=== PATIENT | female | born 1950 | race Caucasian/White ===

== ENCOUNTER 2017-11-21 10:25 | Outpatient (RCR) | payer MEDICARE, OTHER, SELFPAY ==
[2017-11-21 11:04] VITALS: BP 144/68; PULSE 88; RESP 18; TEMP 36.6; BMI 66.2
--- NOTE | 2017-11-21 12:17 | PN.PCM_ITS ---
(1) Ulcer of right foot with fat layer exposed Status: Chronic Current Visit: Yes Code(s): L97.512 - Non-pressure chronic ulcer of other part of right foot with fat layer exposed (2) Type 2 diabetes mellitus with diabetic polyneuropathy Status: Chronic Current Visit: Yes Code(s): E11.42 - Type 2 diabetes mellitus with diabetic polyneuropathy (3) Other specified peripheral vascular diseases Status: Chronic Current Visit: Yes Code(s): I73.89 - Other specified peripheral vascular diseases (4) Malnutrition Status: Suspected Current Visit: Yes Code(s): E46 - Unspecified protein- calorie malnutrition Type of Wound Date of Service: 11/21/17 Chief Complaint: Right heel wound History of Wound: This 67-year-old female with multiple comorbidities was seen today in the wound healing center for right heel ulcer with an onset of September 26, 2017 after she had repair of a acute right hip fracture. Her wound was a result of her lying in bed. She has been having dressing changes performed and wears an offloading foam boot. She denies routine claudication. She does have some occasional paresthesias. She denies taking nutritional supplements. Primary care physician: Dr. Tai Love in [facility]. Medications: Atorvastatin, losartan, 81 mg aspirin, latanoprost, Plavix, metformin, insulin aspart, and glucosamine/chondroitin, cetirizine, ginkgo biloba, vitamin B12, multivitamin Centrum for women, Santyl. She is: Cortisone , latex, strawberry. Past medical history: Cataracts, glaucoma, chronic sinusitis, history of ear surgery, hypertension, peripheral vascular disease, history of vasculitis, diabetes. Family history: Diabetes, cancer, heart disease, hypertension, lung disease, seizures, stroke. Hospitalization/ surgical history: Gallstone removal, right knee orthopedic, hysterectomy, cataract removal, nose passage surgery, right hip fracture repair, left fifth toe amputation, right central toe amputation. Review of systems: Denies ever, chill, nausea, shortness of breath, chest pain, calf pain, abdominal pain. Reports right heel ulcer, occasional paresthesias, reviews claudication. denies infection. Progress of Wound: Stable - Physical Exam Vital Signs Temp Pulse Resp BP 97.8 F 88 18 144/68 H 11/21/17 11:04 11/21/17 11:04 11/21/17 11:04 11/21/17 11:04 General: Alert, Oriented x3, Cooperative HEENT: Atraumatic Extremities: No cyanosis, Capillary Refill Less than 3 Seconds, No Calf Tenderness - Negative Day and Rojo sign bilateral, Diminished Peripheral Pulses - 1 out of 4 dorsalis pedis right and nonpalpable PT right, Edema - Mild Skin: Ulcer/ Wound - No purulence, no erythema, no streaking, no infection, no odor. The wound base has adipose tissue exposed and granulation tissue. There is no eschar or shannon necrosis. There is no deep exposed tissue. Wound Measurements and Assessment WC - Nurse 1 - General Ulcer Measurement Start: 11/21/17 11:04 Freq: Status: Active Protocol: Activity Type Activity Date Activity User E-Sign Co-Sign Detail Recorded Client Recorded Date Recorded By Document 11/21/17 11:04 DL [id number] 11/21/17 11:24 DL 11/21/17 11:04 Wound Center Nurse 1 [Ulcer Assessment Protocol: HEIDI.WD.LOC] #1 R Heel -Current Size (cm) - Length 1.6 -Current Size (cm) - Width 1.6 -Current Size (cm) - Depth 0.2 -Total Square Cm 2.56 -Photo Taken Yes -Epithelialization Small 1-33% -Exudate Amt Small (1-33%) -Exudate Type Serosanguineous -Wound Margin Distinct, Outline Attached -Granulation Amt Medium (34-66%) -Granulation Quality [place] -Necrosis Amt Medium (34-66%) -Necrotic Tissue Type Adherent Slough -Structure Exposed N/A -Texture (Rebeca-wound Skin Appearance) No Abnormality -Moisture (Rebeca-wound Skin Appearance No Abnormality ) -Color (Rebeca-wound Skin Appearance) No Abnormality -Temperature (Rebeca-wound Skin No Abnormality Appearance) (Pt Warm) -Ulcer Cleansing Wound Cleanser -Foul Odor after Cleansing No -Anesthetic Used 4% Lidocaine Solution [Edema Assessment] -Right Calf (cm) 33.2 -Right Ankle (cm) 19.7 -Left Calf (cm) 34.6 -Left Ankle (cm) 19.5 WC - Nurse 2 - General Ulcer CM Notes Start: 11/21/17 11:04 Freq: Status: Active Protocol: Activity Type Activity Date Activity User E-Sign Co-Sign Detail Recorded Client Recorded Date Recorded By Document 11/21/17 11:47 JF [id number] 11/21/17 11:54 11/21/17 11:47 Wound Center Nurse 2 [Procedure/Treatment] #1 R Heel -Time 11:48 -Correct Patient Yes -Correct Side, Site, Position Yes -Correct Procedure Yes -Procedure Performed Yes -Type of Procedure Debridement -Clinical Debridement Subcutaneous -Post Debridement Size (cm) - Length 1.7 -Post Debridement Size (cm) - Width 1.7 -Post Debridement Size (cm) - Depth 0.2 -Total Square Cm 2.89 -Wound/Ulcer Outcome Not Healed -Ulcer Cleansing Rinsed/ Irrigated with Saline -Foul Odor after Cleansing No -Bioengineered Tissue No -Cetacaine Bowden No -Bleeding Controlled with Pressure -Treatment Response Procedure Tolerated Well [See Physician Procedure note for Specifics] Pain Scale: 0-10 Numeric [Pain] -Is Patient Pain Free? Yes Musculoskeletal: No Tenderness to Palpation of Joints or Extremities, Muscle Wasting, Tenderness - Manipulation tenderness. No peripheral fluctuance noted. , - Neurological: - - Altered sensation or light touch right foot Psych/Mental Status: Normal Affect, Appropriate Debridement Note Post-Debridement Measurements/Treatment WC - Nurse 2 - General Ulcer CM Notes Start: 11/21/17 11:04 Freq: Status: Active Protocol: Activity Type Activity Date Activity User E-Sign Co-Sign Detail Recorded Client Recorded Date Recorded By Document 11/21/17 11:47 [id number] 11/21/17 11:54 11/21/17 11:47 Wound Center Nurse 2 #1 R Heel -Time 11:48 -Correct Patient Yes -Correct Side, Site, Position Yes -Correct Procedure Yes -Procedure Performed Yes -Type of Procedure Debridement -Clinical Debridement Subcutaneous -Post Debridement Size (cm) - Length 1.7 -Post Debridement Size (cm) - Width 1.7 -Post Debridement Size (cm) - Depth 0.2 -Total Square Cm 2.89 -Wound/Ulcer Outcome Not Healed -Ulcer Cleansing Rinsed/ Irrigated with Saline -Foul Odor after Cleansing No -Bioengineered Tissue No -Cetacaine Bowden No -Bleeding Controlled with Pressure -Treatment Response Procedure Tolerated Well Pain Scale: 0-10 Numeric Is Patient Pain Free? Yes Wound debrided: Posterior heel Laterality: Right Wound Grade/Stage: Grade 1 Type of Debridement: Excisional debridement Anesthesia Used: 4% Lidocaine Solution Depth: in the subcutaneous layer Percentage of wound debrided: 100 Instrument Used: 5mm curette Tissue Removed: Fibrous, devitalized subcutaneous, biofilm, slough Severity: Fat Layer Exposed Amount of bleeding with debridement: Mild Bleeding Controlled with: Pressure Patient tolerated procedure well Assessment/Plan Active Problems Ulcer of right foot with fat layer exposed (Chronic) Type 2 diabetes mellitus with diabetic polyneuropathy (Chronic) Other specified peripheral vascular diseases (Chronic) Assessment: Chronic ulcer right heel. Delayed healing. Diabetes with suspected neuropathy. History of peripheral vascular disease. Malnutrition Plan: I reviewed and discussed the case today with the patient. Subcutaneous debridement was performed as noted in the clinical panel. Ángela was applied. She is advised to changes daily. She was reassured there are no signs of infection or deeper tissue exposed. I do not recommend antibiotics. Advanced wound care products will be considered if lack of healing is noted. To keep pressure off of this site by continuing to wear surgical shoes during ambulation. To hang heels over a pillow in bed to float this area in the air. To continue with proper nutritional control and supplementation to optimize healing. A prescription for Mitchell nutritional supplement packets were provided today. To control edema with Tubigrip application. Her medical records from the [facility] particularly with her primary care physician and vascular surgery intervention have been requested. New labs have been ordered including hemoglobin A1c, CBC, and CMP to better understand her baseline medical status. I also will order noninvasive arterial studies including ABIs if this has not been performed the [facility] recently. All of her questions were answered. Return to clinic in 1 week or call sooner if she has any questions or concerns.
== END 2017-11-21 23:59 ==
LOC: WC 10:25
PROVIDERS: PCP Family Medicine; Visit Provider Podiatrist
DX: E11.621 Type 2 diabetes mellitus with foot ulcer (principal); E11.42 Type 2 diabetes mellitus with diabetic polyneuropathy; E11.51 Type 2 diabetes mellitus with diabetic peripheral angiopathy without gangrene; L97.512 Non-pressure chronic ulcer of other part of right foot with fat layer exposed; I10 Essential (primary) hypertension
CPT/HCPCS: 11042; 99203; G0463

== ENCOUNTER 2017-12-19 09:00 | Outpatient (RCR) | payer MEDICARE, OTHER, SELFPAY ==
[2017-11-21 11:04] VITALS: BP 144/68
[2017-11-22 01:22] VITALS: PULSE 88; RESP 18; TEMP 36.6
[2017-11-28 09:05] VITALS: BP 151/89; PULSE 88; RESP 18; TEMP 36.8; BMI 66.2
--- NOTE | 2017-11-28 10:33 | PCM.WC.PN ---
(1) Malnutrition Status: Chronic Current Visit: Yes Code(s): E46 - Unspecified protein-calorie malnutrition (2) Other specified peripheral vascular diseases Status: Chronic Current Visit: Yes Code(s): I73.89 - Other specified peripheral vascular diseases (3) Type 2 diabetes mellitus with diabetic polyneuropathy Status: Chronic Current Visit: Yes Code(s): E11.42 - Type 2 diabetes mellitus with diabetic polyneuropathy (4) Ulcer of right foot with fat layer exposed Status: Chronic Current Visit: Yes Code(s): L97.512 - Non-pressure chronic ulcer of other part of right foot with fat layer exposed Type of Wound Date of Service: 11/28/17 Chief Complaint: Right heel wound History of Wound: This 67-year-old female with multiple comorbidities was seen today in the wound healing center for right heel ulcer with an onset of September 26, 2017. She has been having dressing changes performed and wears an offloading foam boot. She denies taking nutritional supplements as advised. The michelle increased her blood sugar too much so she changed to glucerna. She denies pain. She does not recall the location in which she saw her vascular surgeon. Primary care physician: Dr. Tai Love in [facility]. Medications: Atorvastatin, losartan, 81 mg aspirin, latanoprost, Plavix, metformin, insulin aspart, and glucosamine/chondroitin, cetirizine, ginkgo biloba, vitamin B12, multivitamin Centrum for women, Santyl. She is: Cortisone, latex, strawberry. Past medical history: Cataracts, glaucoma, chronic sinusitis, history of ear surgery, hypertension, peripheral vascular disease, history of vasculitis, diabetes. Family history: Diabetes, cancer, heart disease, hypertension, lung disease, seizures, stroke. Hospitalization/surgical history: Gallstone removal, right knee orthopedic, hysterectomy, cataract removal, nose passage surgery, right hip fracture repair, left fifth toe amputation, right central toe amputation. Review of systems: Denies ever, chill, nausea, shortness of breath, chest pain, calf pain, abdominal pain. Reports right heel ulcer, occasional paresthesias, reviews claudication. denies infection. Progress of Wound: Stable - Physical Exam Vital Signs Temp Pulse Resp BP 98.2 F 88 18 151/89 H 11/28/17 09:05 11/28/17 09:05 11/28/17 09:05 11/28/17 09:05 General: Alert, Oriented x3, Cooperative, Confused Extremities: No cyanosis, Capillary Refill Less than 3 Seconds, No Calf Tenderness - neg cindy and shukla bilateral, Diminished Peripheral Pulses, Edema Skin: Ulcer/ Wound - no erythema, no purulence, no odor, no streaking noted. peripheral skin is atrophic Wound Measurements and Assessment WC - Nurse 1 - General Ulcer Measurement Start: 11/28/17 09:05 Freq: Status: Active Protocol: Activity Type Activity Date Activity User E-Sign Co-Sign Detail Recorded Client Recorded Date Recorded By Document 11/28/17 09:05 DL [id number] 11/28/17 09:07 DL 11/28/17 09:05 Wound Center Nurse 1 [Ulcer Assessment Protocol: .WD.LOC] #1 R Heel -Current Size (cm) - Length 1.7 -Current Size (cm) - Width 1 -Current Size (cm) - Depth 0.2 -Total Square Cm 1.7 -Photo Taken No -Exudate Amt Small (1-33%) -Exudate Type Serosanguineous -Wound Margin Distinct, Outline Attached -Granulation Amt Medium (34-66%) -Granulation Quality [place] -Necrosis Amt Medium (34-66%) -Necrotic Tissue Type Adherent Slough -Structure Exposed N/A -Texture (Rebeca-wound Skin Appearance) No Abnormality -Moisture (Rebeca-wound Skin Appearance No Abnormality ) -Color (Rebeca-wound Skin Appearance) No Abnormality -Temperature (Rebeca-wound Skin No Abnormality Appearance) (Pt Warm) -Tenderness on Palpation (Rebeca-wound No Skin Appearance) -Ulcer Cleansing Rinsed/ Irrigated with Saline -Foul Odor after Cleansing No -Anesthetic Used 4% Lidocaine Solution - Nurse 2 - General Ulcer CM Notes Start: 11/28/17 09:05 Freq: Status: Active Protocol: Activity Type Activity Date Activity User E-Sign Co-Sign Detail Recorded Client Recorded Date Recorded By Document 11/28/17 09:14 TM [id number] 11/28/17 09:17 TM 11/28/17 09:14 Wound Center Nurse 2 [Procedure/Treatment] -Time 09:14 -Correct Patient Yes -Correct Side, Site, Position Yes -Correct Procedure Yes -Procedure Performed Yes -Type of Procedure Debridement -Clinical Debridement Subcutaneous -Post Debridement Size (cm) - Length 1.8 -Post Debridement Size (cm) - Width 1.1 -Post Debridement Size (cm) - Depth 0.2 -Total Square Cm 1.98 -Wound/Ulcer Outcome Not Healed -Ulcer Cleansing Rinsed/ Irrigated with Saline -Foul Odor after Cleansing No -Bioengineered Tissue No -Bleeding Controlled with Pressure -Treatment Response Procedure Tolerated Well [See Physician Procedure note for Specifics] Pain Scale: 0-10 Numeric [Pain] -Is Patient Pain Free? Yes Musculoskeletal: No Tenderness to Palpation of Joints or Extremities, Muscle Wasting, - - no pain with wound manipulation or crepitus Neurological: - - lack of epicritic sensation via light touch right lower extremity Psych/Mental Status: Normal Affect, Appropriate Debridement Note Post-Debridement Measurements/Treatment WC - Nurse 2 - General Ulcer CM Notes Start: 11/28/17 09:05 Freq: Status: Active Protocol: Activity Type Activity Date Activity User E-Sign Co-Sign Detail Recorded Client Recorded Date Recorded By Document 11/28/17 09:14 [id number] 11/28/17 09:17 11/28/17 09:14 Wound Center Nurse 2 #1 R Heel -Time 09:14 -Correct Patient Yes -Correct Side, Site, Position Yes -Correct Procedure Yes -Procedure Performed Yes -Type of Procedure Debridement -Clinical Debridement Subcutaneous -Post Debridement Size (cm) - Length 1.8 -Post Debridement Size (cm) - Width 1.1 -Post Debridement Size (cm) - Depth 0.2 -Total Square Cm 1.98 -Wound/Ulcer Outcome Not Healed -Ulcer Cleansing Rinsed/ Irrigated with Saline -Foul Odor after Cleansing No -Bioengineered Tissue No -Bleeding Controlled with Pressure -Treatment Response Procedure Tolerated Well Pain Scale: 0-10 Numeric Is Patient Pain Free? Yes Wound debrided: heel Laterality: Right Wound Grade/Stage: grade 1 Type of Debridement: Excisional debridement Anesthesia Used: 4% Lidocaine Solution Depth: in the subcutaneous layer Percentage of wound debrided: 100 Instrument Used: #15 blade Tissue Removed: fibrous, devitalized subcutaneous, biofilm, slough Severity: Fat Layer Exposed Amount of bleeding with debridement: Mild Bleeding Controlled with: Pressure Patient tolerated procedure well Assessment/Plan Active Problems Malnutrition (Chronic) Other specified peripheral vascular diseases (Chronic) Type 2 diabetes mellitus with diabetic polyneuropathy (Chronic) Ulcer of right foot with fat layer exposed (Chronic) Assessment: Chronic ulcer right heel fat layer exposed. Delayed healing. Diabetes with suspected neuropathy. History of peripheral vascular disease. Malnutrition Plan: I reviewed and discussed the case today with the patient. Subcutaneous debridement was performed as noted in the clinical panel. Ángela was applied. She is advised to changes daily. She was reassured there are no signs of infection or deeper tissue exposed. I do not recommend antibiotics. Advanced wound care products will be considered if lack of healing is noted. [employer] preauthorization was initiated. To keep pressure off of this site by continuing to wear surgical shoes during ambulation. To hang heels over a pillow in bed to float this area in the air. To continue with proper nutritional control and supplementation to optimize healing. To continue glucerna nutritional suppplementation. To control edema with Tubigrip application. Her medical records from the [facility] particularly with her primary care physician and vascular surgery intervention have been requested. I reviewed the non invasive vascular studies which demonstrates significant calcification. Her vascular physician reports will be requested and the location is not clear at this time so we will try to locate these files. New labs have been ordered including hemoglobin A1c, CBC, and CMP to better understand her baseline medical status. This will be requested again from her skilled facility. All of her questions were answered. RTC 1 week or call sooner if questions or concerns. Return to clinic in 1 week or call sooner if she has any questions or concerns.
[2017-12-05 13:35] VITALS: BP 134/60; PULSE 64; RESP 18; TEMP 36.6; BMI 66.2
--- NOTE | 2017-12-05 14:48 | PCM.WC.PN ---
(1) Malnutrition Status: Chronic Current Visit: Yes Code(s): E46 - Unspecified protein-calorie malnutrition (2) Other specified peripheral vascular diseases Status: Chronic Current Visit: Yes Code(s): I73.89 - Other specified peripheral vascular diseases (3) Type 2 diabetes mellitus with diabetic polyneuropathy Status: Chronic Current Visit: Yes Code(s): E11.42 - Type 2 diabetes mellitus with diabetic polyneuropathy (4) Ulcer of right foot with fat layer exposed Status: Chronic Current Visit: Yes Code(s): L97.512 - Non-pressure chronic ulcer of other part of right foot with fat layer exposed Type of Wound Date of Service: 12/06/17 Chief Complaint: Right heel wound History of Wound: This 67-year-old female with multiple comorbidities was seen today in the wound healing center for right heel ulcer with an onset of September 26, 2017. She has been having dressing changes performed and wears an offloading foam boot. She denies taking nutritional supplements as advised.She denies pain. Progress of Wound: Stable - Physical Exam Vital Signs Temp Pulse Resp BP 97.8 F 64 18 134/60 H 12/05/17 13:35 12/05/17 13:35 12/05/17 13:35 12/05/17 13:35 General: Alert, Oriented x3, Cooperative Extremities: No cyanosis, Capillary Refill Less than 3 Seconds, No Calf Tenderness, Diminished Peripheral Pulses, Edema Skin: Ulcer/ Wound - No purulence, no erythema, no streaking, no infection. Skin is atrophic and hairless. Wound Measurements and Assessment HEIDI - Nurse 1 - General Ulcer Measurement Start: 11/28/17 09:05 Freq: Status: Active Protocol: Activity Type Activity Date Activity User E-Sign Co-Sign Detail Recorded Client Recorded Date Recorded By Document 12/05/17 13:35 RB [id number] 12/05/17 13:45 RB 12/05/17 13:35 Wound Center Nurse 1 [Ulcer Assessment Protocol: HEIDI.WD.LOC] #1 R Heel -Combined with other wound No -Current Size (cm) - Length 1 -Current Size (cm) - Width 0.8 -Current Size (cm) - Depth 0.3 -Total Square Cm 0.8 -Photo Taken No -Epithelialization Small 1-33% -Tunneling No -Undermining/Tunneling No -Circular Undermining No -Classification - Pressure Ulcer Stage 2 -Exudate Amt Small (1-33%) -Exudate Type Serosanguineous -Wound Margin Thickened & Rolled Under -Granulation Amt Medium (34-66%) -Granulation Quality Flat -Slough/Fibrin Yes -Necrosis Amt Small (1-33%) -Necrotic Tissue Type Adherent Slough -Structure Exposed N/A -Texture (Rebeca-wound Skin Appearance) Assessed Callus -Moisture (Rebeca-wound Skin Appearance Assessed ) -Color (Rebeca-wound Skin Appearance) Assessed -Temperature (Rebeca-wound Skin No Abnormality Appearance) (Pt Warm) -Tenderness on Palpation (Rebeca-wound No Skin Appearance) -Ulcer Cleansing Rinsed/ Irrigated with Saline -Foul Odor after Cleansing No -Anesthetic Used 4% Lidocaine Solution [Edema Assessment] -Lower Limb Edema Present Yes -Right Calf (cm) 36.2 -Right Ankle (cm) 21 - Nurse 2 - General Ulcer CM Notes Start: 11/28/17 09:05 Freq: Status: Active Protocol: Activity Type Activity Date Activity User E-Sign Co-Sign Detail Recorded Client Recorded Date Recorded By Document 12/05/17 14:20 [id number] 12/05/17 14:21 12/05/17 14:20 Wound Center Nurse 2 [Procedure/Treatment] #1 R Heel -Time 14:20 -Correct Patient Yes -Correct Side, Site, Position Yes -Correct Procedure Yes -Procedure Performed Yes -Type of Procedure Debridement -Clinical Debridement Subcutaneous -Post Debridement Size (cm) - Length 1 -Post Debridement Size (cm) - Width 0.9 -Post Debridement Size (cm) - Depth 0.3 -Total Square Cm 0.9 -Wound/Ulcer Outcome Not Healed -Ulcer Cleansing Rinsed/ Irrigated with Saline -Foul Odor after Cleansing No -Bioengineered Tissue No -Bleeding Controlled with Pressure -Treatment Response Procedure Tolerated Well [See Physician Procedure note for Specifics] Pain Scale: 0-10 Numeric [Pain] -Is Patient Pain Free? Yes Musculoskeletal: No Tenderness to Palpation of Joints or Extremities, - - No wound pain manipulation. No crepitus Neurological: - - Lack of sensation to light touch lower extremities bilateral Psych/Mental Status: Normal Affect, Appropriate Debridement Note Post-Debridement Measurements/Treatment - Nurse 2 - General Ulcer CM Notes Start: 02/07/18 09:05 Freq: Status: Active Protocol: Activity Type Activity Date Activity User E-Sign Co-Sign Detail Recorded Client Recorded Date Recorded By Document 11/28/17 09:14 [id number] 11/28/17 09:17 Document 12/05/17 14:20 [id number] 12/05/17 14:21 11/28/17 12/05/17 09:14 14:20 Wound Center Nurse 2 #1 R Heel -Time 09:14 14:20 -Correct Patient Yes Yes -Correct Side, Site, Position Yes Yes -Correct Procedure Yes Yes -Procedure Performed Yes Yes -Type of Procedure Debridement Debridement -Clinical Debridement Subcutaneous Subcutaneous -Post Debridement Size (cm) - Length 1.8 1 -Post Debridement Size (cm) - Width 1.1 0.9 -Post Debridement Size (cm) - Depth 0.2 0.3 -Total Square Cm 1.98 0.9 -Wound/Ulcer Outcome Not Healed Not Healed -Ulcer Cleansing Rinsed/ Rinsed/ Irrigated with Irrigated with Saline Saline -Foul Odor after Cleansing No No -Bioengineered Tissue No No -Bleeding Controlled with Pressure Pressure -Treatment Response Procedure Procedure Tolerated Well Tolerated Well Pain Scale: 0-10 Numeric Is Patient Pain Free? Yes Yes Wound debrided: posterior heel Laterality: Right Wound Grade/Stage: grade 1 Type of Debridement: Excisional debridement Anesthesia Used: 4% Lidocaine Solution Depth: in the subcutaneous layer Percentage of wound debrided: 100 Instrument Used: #15 blade Tissue Removed: Fibrous, devitalized subcutaneous, biofilm, slough Severity: Fat Layer Exposed Amount of bleeding with debridement: Mild Bleeding Controlled with: Pressure Patient tolerated procedure well Assessment/Plan Active Problems Malnutrition (Chronic) Other specified peripheral vascular diseases (Chronic) Type 2 diabetes mellitus with diabetic polyneuropathy (Chronic) Ulcer of right foot with fat layer exposed (Chronic) Assessment: Chronic ulcer right heel fat layer exposed. Delayed healing. Diabetes with suspected neuropathy. History of peripheral vascular disease. Malnutrition Plan: I reviewed and discussed the case today with the patient. Subcutaneous debridement was performed as noted in the clinical panel. Ángela was applied. She is advised to changes daily. She was reassured there are no signs of infection or deeper tissue exposed. I do not recommend antibiotics. Advanced wound care products will be considered if lack of healing is noted. Epifix preauthorization was initiated.She provided her secondary insurance information today and the preauthorization will be continued with this new information. To keep pressure off of this site by continuing to wear surgical shoes during ambulation. To hang heels over a pillow in bed to float this area in the air. To continue with proper nutritional control and supplementation to optimize healing. To continue glucerna nutritional suppplementation. To control edema with Tubigrip application. Her medical records from the [facility] particularly with her primary care physician and vascular surgery intervention have been requested and reviewed. I reviewed the non invasive vascular studies which demonstrates significant calcification. Her vascular physician reports will be requested and the location is not clear at this time so we will try to locate these files. New labs have been ordered including hemoglobin A1c, CBC, and CMP to better understand her baseline medical status. This will be requested again from her skilled facility. The patient confirmed she did have this blood drawn to complete this test. All of her questions were answered. RTC 1 week or call sooner if questions or concerns. Return to clinic in 1 week or call sooner if she has any questions or concerns.
[2017-12-12 08:48] VITALS: BP 137/60; PULSE 87; RESP 18; TEMP 36.6; BMI 66.2
--- NOTE | 2017-12-12 09:22 | PCM.WC.PN ---
(1) Ulcer of right foot with fat layer exposed Status: Chronic Current Visit: Yes Code(s): L97.512 - Non-pressure chronic ulcer of other part of right foot with fat layer exposed (2) Malnutrition Status: Chronic Current Visit: Yes Code(s): E46 - Unspecified protein-calorie malnutrition (3) Other specified peripheral vascular diseases Status: Chronic Current Visit: Yes Code(s): I73.89 - Other specified peripheral vascular diseases (4) Type 2 diabetes mellitus with diabetic polyneuropathy Status: Chronic Current Visit: Yes Code(s): E11.42 - Type 2 diabetes mellitus with diabetic polyneuropathy Type of Wound Date of Service: 12/12/17 Chief Complaint: Right heel wound History of Wound: This 67-year-old female with multiple comorbidities was seen today in the wound healing center for right heel ulcer with an onset of September 26, 2017. She does continue to wear shoes when she travels the hospital visit her [id number] driving she denies taking nutritional supplements as advised.She denies pain. She is waiting for epifix approval. Progress of Wound: Stable - Physical Exam Vital Signs Temp Pulse Resp BP 97.8 F 87 18 137/60 H 12/12/17 08:48 12/12/17 08:48 12/12/17 08:48 12/12/17 08:48 General: Alert, Oriented x3, Cooperative Extremities: No cyanosis, Capillary Refill Less than 3 Seconds, No Calf Tenderness - Negative Rojo sign right, Diminished Peripheral Pulses, Edema - Mild Skin: Ulcer/ Wound - No purulence, no erythema, streaking, no odor, no exposed he will are deep tissue. The wound bed is granular and fibrous. Wound Measurements and Assessment WC - Nurse 1 - General Ulcer Measurement Start: 11/28/17 09:05 Freq: Status: Active Protocol: Activity Type Activity Date Activity User E-Sign Co-Sign Detail Recorded Client Recorded Date Recorded By Document 12/12/17 08:48 BRUNO [id number] 12/12/17 08:51 BRUNO 12/12/17 08:48 Wound Center Nurse 1 [Ulcer Assessment] #1 R Heel -Combined with other wound No -Current Size (cm) - Length 1.2 -Current Size (cm) - Width 1.0 -Current Size (cm) - Depth 0.4 -Total Square Cm 1.20 -Photo Taken No -Epithelialization Small 1-33% -Tunneling No -Undermining/Tunneling No -Circular Undermining No -Exudate Amt Small (1-33%) -Exudate Type Serosanguineous -Wound Margin Flat & Intact -Granulation Amt Small (1-33%) -Granulation Quality [place] -Slough/Fibrin Yes -Necrosis Amt Large (67-100%) -Necrotic Tissue Type Adherent Slough -Structure Exposed N/A -Texture (Rebeca-wound Skin Appearance) Assessed Crepitus -Moisture (Rebeca-wound Skin Appearance Assessed ) Dry/Scaly -Color (Rebeca-wound Skin Appearance) Assessed -Tenderness on Palpation (Rebeca-wound No Skin Appearance) -Ulcer Cleansing Rinsed/ Irrigated with Saline -Foul Odor after Cleansing No -Anesthetic Used 4% Lidocaine Solution [Edema Assessment] -Lower Limb Edema Present Yes -Right Calf (cm) 33.9 -Right Ankle (cm) 19.6 WC - Nurse 2 - General Ulcer CM Notes Start: 11/28/17 09:05 Freq: Status: Active Protocol: Activity Type Activity Date Activity User E-Sign Co-Sign Detail Recorded Client Recorded Date Recorded By Document 12/12/17 09:05 [id number] 12/12/17 09:09 12/12/17 09:05 Wound Center Nurse 2 [Procedure/Treatment] #1 R Heel -Time 09:06 -Correct Patient Yes -Correct Side, Site, Position Yes -Correct Procedure Yes -Procedure Performed Yes -Type of Procedure Debridement -Clinical Debridement Subcutaneous -Post Debridement Size (cm) - Length 1.3 -Post Debridement Size (cm) - Width 1.1 -Post Debridement Size (cm) - Depth 0.4 -Total Square Cm 1.43 -Wound/Ulcer Outcome Not Healed -Ulcer Cleansing Rinsed/ Irrigated with Saline -Foul Odor after Cleansing No -Bioengineered Tissue Yes -Type of bioengineered Tissue EPIFIX -Expiration Date 09/21/22 -Product Lot Number [id number] -Percent Used 100 -Saline Lot Number [id number] -Topical Lidocaine (%) 4 -Bleeding Controlled with Pressure -Treatment Response Procedure Tolerated Well [See Physician Procedure note for Specifics] Pain Scale: 0-10 Numeric [Pain] -Is Patient Pain Free? Yes Musculoskeletal: No Tenderness to Palpation of Joints or Extremities, Muscle Wasting, - - No crepitus on palpation. Neurological: - - Lack of epicritic sensation light touch Psych/Mental Status: Normal Affect, Appropriate Debridement Note Post-Debridement Measurements/Treatment WC - Nurse 2 - General Ulcer CM Notes Start: 11/28/17 09:05 Freq: Status: Active Protocol: Activity Type Activity Date Activity User E-Sign Co-Sign Detail Recorded Client Recorded Date Recorded By Document 11/28/17 09:14 [id number] 11/28/17 09:17 Document 12/05/17 14:20 [id number] 12/05/17 14:21 Document 12/12/17 09:05 TM [id number] 12/12/17 09:09 TM 11/28/17 12/05/17 12/12/17 09:14 14:20 09:05 Wound Center Nurse 2 #1 R Heel -Time 09:14 14:20 09:06 -Correct Patient Yes Yes Yes -Correct Side, Site, Position Yes Yes Yes -Correct Procedure Yes Yes Yes -Procedure Performed Yes Yes Yes -Type of Procedure Debridement Debridement Debridement -Clinical Debridement Subcutaneous Subcutaneous Subcutaneous -Post Debridement Size (cm) - Length 1.8 1 1.3 -Post Debridement Size (cm) - Width 1.1 0.9 1.1 -Post Debridement Size (cm) - Depth 0.2 0.3 0.4 -Total Square Cm 1.98 0.9 1.43 -Wound/Ulcer Outcome Not Healed Not Healed Not Healed -Ulcer Cleansing Rinsed/ Rinsed/ Rinsed/ Irrigated with Irrigated with Irrigated with Saline Saline Saline -Foul Odor after Cleansing No No No -Bioengineered Tissue No No Yes -Type of bioengineered Tissue EPIFIX -Expiration Date 09/21/22 -Product Lot Number [id number] -Percent Used 100 -Saline Lot Number [id number] -Topical Lidocaine (%) 4 -Bleeding Controlled with Pressure Pressure Pressure -Treatment Response Procedure Procedure Procedure Tolerated Well Tolerated Well Tolerated Well Pain Scale: 0-10 Numeric Is Patient Pain Free? Yes Yes Yes Wound debrided: posterior heel Laterality: Right Wound Grade/Stage: grade 1 Type of Debridement: Excisional debridement Anesthesia Used: 4% Lidocaine Solution Depth: in the subcutaneous layer Percentage of wound debrided: 100 Instrument Used: #15 blade Tissue Removed: fibrous, devitalized subcutaneous, biofilm, slough Severity: Fat Layer Exposed Amount of bleeding with debridement: Mild Bleeding Controlled with: Pressure Patient tolerated procedure well Assessment/Plan Active Problems Malnutrition (Chronic) Other specified peripheral vascular diseases (Chronic) Type 2 diabetes mellitus with diabetic polyneuropathy (Chronic) Ulcer of right foot with fat layer exposed (Chronic) Assessment: Chronic ulcer right heel fat layer exposed. Delayed healing. Diabetes with suspected neuropathy. History of peripheral vascular disease. Malnutrition Plan: I reviewed and discussed the case today with the patient. Subcutaneous debridement was performed as noted in the clinical panel. Her secondary insurance has been processed this past week and she is approved for advanced wound care product, epifix. This was applied after saline irrigation according to standard protocol. This was secured in place with Steri-Strips and wound gel. She tolerated this well. The indications and benefits and anticipated healing course were discussed. She was reassured there are no signs of infection or deeper tissue exposed. I do not recommend antibiotics. To keep pressure off of this site by continuing to wear surgical shoes during ambulation. To hang heels over a pillow in bed to float this area in the air. Offloading felt pads were applied to the inside of her surgical shoe to offload the heel site; to where she was a minimal amount and reserved only for traveling. To continue with proper nutritional control, glycemic control, and supplementation to optimize healing. To continue glucerna nutritional suppplementation. To control edema with Tubigrip application. Her medical records from the [facility] particularly with her primary care physician and vascular surgery intervention have been requested and reviewed. The findings include the following from November 23, 2017; white blood cell count 8.1 glucose 282, creatinine 0.7, albumin 4.2, hemoglobin A1c 8.2%. I reviewed the non invasive vascular studies which demonstrates significant calcification. All of her questions were answered. RTC 1 week or call sooner if questions or concerns.
--- NOTE | 2017-12-12 09:26 | PN.PCM_ITS ---
(1) Ulcer of right foot with fat layer exposed Status: Chronic Current Visit: Yes Code(s): L97.512 - Non-pressure chronic ulcer of other part of right foot with fat layer exposed (2) Malnutrition Status: Chronic Current Visit: Yes Code(s): E46 - Unspecified protein- calorie malnutrition (3) Other specified peripheral vascular diseases Status: Chronic Current Visit: Yes Code(s): I73.89 - Other specified peripheral vascular diseases (4) Type 2 diabetes mellitus with diabetic polyneuropathy Status: Chronic Current Visit: Yes Code(s): E11.42 - Type 2 diabetes mellitus with diabetic polyneuropathy Type of Wound Date of Service: 12/12/17 Chief Complaint: Right heel wound History of Wound: This 67-year-old female with multiple comorbidities was seen today in the wound healing center for right heel ulcer with an onset of September 26, 2017. She does continue to wear shoes when she travels the hospital visit her [id number] driving she denies taking nutritional supplements as advised.She denies pain. She is waiting for epifix approval. Progress of Wound: Stable - Physical Exam Vital Signs Temp Pulse Resp BP 97.8 F 87 18 137/60 H 12/12/17 08:48 12/12/17 08:48 12/12/17 08:48 12/12/17 08:48 General: Alert, Oriented x3, Cooperative Extremities: No cyanosis, Capillary Refill Less than 3 Seconds, No Calf Tenderness - Negative Rojo sign right, Diminished Peripheral Pulses, Edema - Mild Skin: Ulcer/ Wound - No purulence, no erythema, streaking, no odor, no exposed he will are deep tissue. The wound bed is granular and fibrous. Wound Measurements and Assessment WC - Nurse 1 - General Ulcer Measurement Start: 11/28/17 09:05 Freq: Status: Active Protocol: Activity Type Activity Date Activity User E-Sign Co-Sign Detail Recorded Client Recorded Date Recorded By Document 12/12/17 08:48 BRUNO [id number] 12/12/17 08:51 BRUNO 12/12/17 08:48 Wound Center Nurse 1 [Ulcer Assessment] #1 R Heel -Combined with other wound No -Current Size (cm) - Length 1.2 -Current Size (cm) - Width 1.0 -Current Size (cm) - Depth 0.4 -Total Square Cm 1.20 -Photo Taken No -Epithelialization Small 1-33% -Tunneling No -Undermining/Tunneling No -Circular Undermining No -Exudate Amt Small (1-33%) -Exudate Type Serosanguineous -Wound Margin Flat & Intact -Granulation Amt Small (1-33%) -Granulation Quality [place] -Slough/Fibrin Yes -Necrosis Amt Large (67-100%) -Necrotic Tissue Type Adherent Slough -Structure Exposed N/A -Texture (Rebeca-wound Skin Appearance) Assessed Crepitus -Moisture (Rebeca-wound Skin Appearance Assessed ) Dry/Scaly -Color (Rebeca-wound Skin Appearance) Assessed -Tenderness on Palpation (Rebeca-wound No Skin Appearance) -Ulcer Cleansing Rinsed/ Irrigated with Saline -Foul Odor after Cleansing No -Anesthetic Used 4% Lidocaine Solution [Edema Assessment] -Lower Limb Edema Present Yes -Right Calf (cm) 33.9 -Right Ankle (cm) 19.6 WC - Nurse 2 - General Ulcer CM Notes Start: 11/28/17 09:05 Freq: Status: Active Protocol: Activity Type Activity Date Activity User E-Sign Co-Sign Detail Recorded Client Recorded Date Recorded By Document 12/12/17 09:05 [id number] 12/12/17 09:09 12/12/17 09:05 Wound Center Nurse 2 [Procedure/Treatment] #1 R Heel -Time 09:06 -Correct Patient Yes -Correct Side, Site, Position Yes -Correct Procedure Yes -Procedure Performed Yes -Type of Procedure Debridement -Clinical Debridement Subcutaneous -Post Debridement Size (cm) - Length 1.3 -Post Debridement Size (cm) - Width 1.1 -Post Debridement Size (cm) - Depth 0.4 -Total Square Cm 1.43 -Wound/Ulcer Outcome Not Healed -Ulcer Cleansing Rinsed/ Irrigated with Saline -Foul Odor after Cleansing No -Bioengineered Tissue Yes -Type of bioengineered Tissue EPIFIX -Expiration Date 09/21/22 -Product Lot Number [id number] -Percent Used 100 -Saline Lot Number [id number] -Topical Lidocaine (%) 4 -Bleeding Controlled with Pressure -Treatment Response Procedure Tolerated Well [See Physician Procedure note for Specifics] Pain Scale: 0-10 Numeric [Pain] -Is Patient Pain Free? Yes Musculoskeletal: No Tenderness to Palpation of Joints or Extremities, Muscle Wasting, - - No crepitus on palpation. Neurological: - - Lack of epicritic sensation light touch Psych/Mental Status: Normal Affect, Appropriate Debridement Note Post-Debridement Measurements/Treatment WC - Nurse 2 - General Ulcer CM Notes Start: 11/28/17 09:05 Freq: Status: Active Protocol: Activity Type Activity Date Activity User E-Sign Co-Sign Detail Recorded Client Recorded Date Recorded By Document 11/28/17 09:14 [id number] 11/28/17 09:17 Document 12/05/17 14:20 [id number] 12/05/17 14:21 Document 12/12/17 09:05 TM [id number] 12/12/17 09:09 TM 11/28/17 12/05/17 12/12/17 09:14 14:20 09:05 Wound Center Nurse 2 #1 R Heel -Time 09:14 14:20 09:06 -Correct Patient Yes Yes Yes -Correct Side, Site, Position Yes Yes Yes -Correct Procedure Yes Yes Yes -Procedure Performed Yes Yes Yes -Type of Procedure Debridement Debridement Debridement -Clinical Debridement Subcutaneous Subcutaneous Subcutaneous -Post Debridement Size (cm) - Length 1.8 1 1.3 -Post Debridement Size (cm) - Width 1.1 0.9 1.1 -Post Debridement Size (cm) - Depth 0.2 0.3 0.4 -Total Square Cm 1.98 0.9 1.43 -Wound/Ulcer Outcome Not Healed Not Healed Not Healed -Ulcer Cleansing Rinsed/ Rinsed/ Rinsed/ Irrigated with Irrigated with Irrigated with Saline Saline Saline -Foul Odor after Cleansing No No No -Bioengineered Tissue No No Yes -Type of bioengineered Tissue EPIFIX -Expiration Date 09/21/22 -Product Lot Number [id number] -Percent Used 100 -Saline Lot Number [id number] -Topical Lidocaine (%) 4 -Bleeding Controlled with Pressure Pressure Pressure -Treatment Response Procedure Procedure Procedure Tolerated Well Tolerated Well Tolerated Well Pain Scale: 0-10 Numeric Is Patient Pain Free? Yes Yes Yes Wound debrided: posterior heel Laterality: Right Wound Grade/Stage: grade 1 Type of Debridement: Excisional debridement Anesthesia Used: 4% Lidocaine Solution Depth: in the subcutaneous layer Percentage of wound debrided: 100 Instrument Used: #15 blade Tissue Removed: fibrous, devitalized subcutaneous, biofilm, slough Severity: Fat Layer Exposed Amount of bleeding with debridement: Mild Bleeding Controlled with: Pressure Patient tolerated procedure well Assessment/Plan Active Problems Malnutrition (Chronic) Other specified peripheral vascular diseases (Chronic) Type 2 diabetes mellitus with diabetic polyneuropathy (Chronic) Ulcer of right foot with fat layer exposed (Chronic) Assessment: Chronic ulcer right heel fat layer exposed. Delayed healing. Diabetes with suspected neuropathy. History of peripheral vascular disease. Malnutrition Plan: I reviewed and discussed the case today with the patient. Subcutaneous debridement was performed as noted in the clinical panel. Her secondary insurance has been processed this past week and she is approved for advanced wound care product, epifix. This was applied after saline irrigation according to standard protocol. This was secured in place with Steri-Strips and wound gel. She tolerated this well. The indications and benefits and anticipated healing course were discussed. She was reassured there are no signs of infection or deeper tissue exposed. I do not recommend antibiotics. To keep pressure off of this site by continuing to wear surgical shoes during ambulation. To hang heels over a pillow in bed to float this area in the air. Offloading felt pads were applied to the inside of her surgical shoe to offload the heel site; to where she was a minimal amount and reserved only for traveling. To continue with proper nutritional control, glycemic control, and supplementation to optimize healing. To continue glucerna nutritional suppplementation. To control edema with Tubigrip application. Her medical records from the [facility] particularly with her primary care physician and vascular surgery intervention have been requested and reviewed. The findings include the following from November 23, 2017; white blood cell count 8.1 glucose 282, creatinine 0.7, albumin 4.2, hemoglobin A1c 8.2%. I reviewed the non invasive vascular studies which demonstrates significant calcification. All of her questions were answered. RTC 1 week or call sooner if questions or concerns.
[2017-12-19 08:59] VITALS: BP 139/73; PULSE 95; RESP 16; TEMP 36.4; BMI 66.2
--- NOTE | 2017-12-19 11:45 | PN.PCM_ITS ---
(1) Ulcer of right foot with fat layer exposed Status: Chronic Current Visit: Yes Code(s): L97.512 - Non-pressure chronic ulcer of other part of right foot with fat layer exposed (2) Malnutrition Status: Chronic Current Visit: Yes Code(s): E46 - Unspecified protein- calorie malnutrition (3) Other specified peripheral vascular diseases Status: Chronic Current Visit: Yes Code(s): I73.89 - Other specified peripheral vascular diseases (4) Type 2 diabetes mellitus with diabetic polyneuropathy Status: Chronic Current Visit: Yes Code(s): E11.42 - Type 2 diabetes mellitus with diabetic polyneuropathy Type of Wound Date of Service: 12/19/17 Chief Complaint: Right heel wound History of Wound: This 67-year-old female with multiple comorbidities was seen today in the wound healing center for right heel ulcer with an onset of September 26, 2017. She is approved for epi fix application and is ready for application today. She denies pain, fever, chill, nausea, vomiting. Progress of Wound: Improved quality - Physical Exam Vital Signs Temp Pulse Resp BP 97.6 F L 95 16 139/73 H 12/19/17 08:59 12/19/17 08:59 12/19/17 08:59 12/19/17 08:59 General: Alert, Oriented x3, Cooperative HEENT: Atraumatic Extremities: No cyanosis, Capillary Refill Less than 3 Seconds, No Calf Tenderness, Diminished Peripheral Pulses, Edema Skin: Ulcer/ Wound - No purulence, no erythema, no streaking, no odor. the skin is atrophic and hairless. Wound Measurements and Assessment WC - Nurse 1 - General Ulcer Measurement Start: 11/28/17 09:05 Freq: Status: Active Protocol: Activity Type Activity Date Activity User E-Sign Co-Sign Detail Recorded Client Recorded Date Recorded By Document 12/19/17 08:59 DL [id number] 12/19/17 09:09 DL 12/19/17 08:59 Wound Center Nurse 1 [Ulcer Assessment] #1 R Heel -Current Size (cm) - Length 1.1 -Current Size (cm) - Width 0.8 -Current Size (cm) - Depth 0.2 -Total Square Cm 0.88 -Photo Taken No -Exudate Amt Small (1-33%) -Exudate Type Serosanguineous -Wound Margin Distinct, Outline Attached -Granulation Amt Small (1-33%) -Granulation Quality [place] -Necrosis Amt Small (1-33%) -Necrotic Tissue Type Adherent Slough -Structure Exposed N/A -Texture (Rebeca-wound Skin Appearance) No Abnormality -Moisture (Rebeca-wound Skin Appearance [place] ) -Color (Rebeca-wound Skin Appearance) No Abnormality -Temperature (Rebeca-wound Skin No Abnormality Appearance) (Pt Warm) -Ulcer Cleansing Rinsed/ Irrigated with Saline -Foul Odor after Cleansing No -Anesthetic Used 4% Lidocaine Solution [Edema Assessment] -Right Calf (cm) 34 -Right Ankle (cm) 19.5 Musculoskeletal: No Tenderness to Palpation of Joints or Extremities, Muscle Wasting Neurological: - - Lack of epicritic sensation light touch right Psych/Mental Status: Normal Affect, Appropriate Debridement Note Post-Debridement Measurements/Treatment WC - Nurse 2 - General Ulcer CM Notes Start: 11/28/17 09:05 Freq: Status: Active Protocol: Activity Type Activity Date Activity User E-Sign Co-Sign Detail Recorded Client Recorded Date Recorded By Document 11/28/17 09:14 [id number] 11/28/17 09:17 Document 12/05/17 14:20 [id number] 12/05/17 14:21 Document 12/12/17 09:05 [id number] 12/12/17 09:09 11/28/17 12/05/17 12/12/17 09:14 14:20 09:05 Wound Center Nurse 2 #1 R Heel -Time 09:14 14:20 09:06 -Correct Patient Yes Yes Yes -Correct Side, Site, Position Yes Yes Yes -Correct Procedure Yes Yes Yes -Procedure Performed Yes Yes Yes -Type of Procedure Debridement Debridement Debridement -Clinical Debridement Subcutaneous Subcutaneous Subcutaneous -Post Debridement Size (cm) - Length 1.8 1 1.3 -Post Debridement Size (cm) - Width 1.1 0.9 1.1 -Post Debridement Size (cm) - Depth 0.2 0.3 0.4 -Total Square Cm 1.98 0.9 1.43 -Wound/Ulcer Outcome Not Healed Not Healed Not Healed -Ulcer Cleansing Rinsed/ Rinsed/ Rinsed/ Irrigated with Irrigated with Irrigated with Saline Saline Saline -Foul Odor after Cleansing No No No -Bioengineered Tissue No No Yes -Type of bioengineered Tissue EPIFIX -Expiration Date 09/21/22 -Product Lot Number [id number] -Percent Used 100 -Saline Lot Number [id number] -Topical Lidocaine (%) 4 -Bleeding Controlled with Pressure Pressure Pressure -Treatment Response Procedure Procedure Procedure Tolerated Well Tolerated Well Tolerated Well Pain Scale: 0-10 Numeric Is Patient Pain Free? Yes Yes Yes Wound debrided: posterior heel Laterality: Right Wound Grade/Stage: grade 1 Type of Debridement: Excisional debridement Anesthesia Used: 4% Lidocaine Solution Depth: in the subcutaneous layer Percentage of wound debrided: 100 Instrument Used: #15 blade Tissue Removed: fibrous, devitalized subcutaneous, biofilm, slough Severity: Fat Layer Exposed Amount of bleeding with debridement: Mild Bleeding Controlled with: Pressure Patient tolerated procedure well Assessment/Plan Active Problems Malnutrition (Chronic) Other specified peripheral vascular diseases (Chronic) Type 2 diabetes mellitus with diabetic polyneuropathy (Chronic) Ulcer of right foot with fat layer exposed (Chronic) Assessment: Chronic ulcer right heel fat layer exposed. Delayed healing. Diabetes with suspected neuropathy. History of peripheral vascular disease. Malnutrition Plan: I reviewed and discussed the case today with the patient. Subcutaneous debridement was performed as noted in the clinical panel. Epifix, advanced wound care product, was applied after saline irrigation according to standard protocol. This was secured in place with Steri-Strips and wound gel. She tolerated this well. The indications and benefits and anticipated healing course were discussed. She was reassured there are no signs of infection or deeper tissue exposed. I do not recommend antibiotics. To keep pressure off of this site by continuing to wear surgical shoes during ambulation. To hang heels over a pillow in bed to float this area in the air. Offloading felt pads were applied to the inside of her surgical shoe to offload the heel site. To continue with proper nutritional control, glycemic control, and supplementation to optimize healing. To continue glucerna nutritional suppplementation. To control edema with Tubigrip application. Her medical records from the [facility] particularly with her primary care physician and vascular surgery intervention have been requested and reviewed. The findings include the following from November 23, 2017; white blood cell count 8.1 glucose 282, creatinine 0.7, albumin 4.2, hemoglobin A1c 8.2%. I reviewed the non invasive vascular studies which demonstrates significant calcification. All of her questions were answered. RTC 1 week or call sooner if questions or concerns.
== END 2017-12-19 23:59 ==
LOC: WC 09:00
PROVIDERS: PCP Family Medicine; Visit Provider Podiatrist
DX: E11.621 Type 2 diabetes mellitus with foot ulcer (principal); E11.42 Type 2 diabetes mellitus with diabetic polyneuropathy; L97.512 Non-pressure chronic ulcer of other part of right foot with fat layer exposed; E11.51 Type 2 diabetes mellitus with diabetic peripheral angiopathy without gangrene; I10 Essential (primary) hypertension; R60.0 Localized edema
CPT/HCPCS: 11042; 15275; Q4131

== ENCOUNTER 2018-01-02 09:15 | Outpatient (RCR) | payer MEDICARE, OTHER, SELFPAY ==
[2017-12-20 01:00] VITALS: BP 151/89; PULSE 95; RESP 16; TEMP 36.4; BMI 66.2
[2017-12-26 08:18] VITALS: BP 149/86; PULSE 87; RESP 16; TEMP 36.2; BMI 66.2
--- NOTE | 2017-12-26 08:56 | PCM.WC.PN ---
(1) Malnutrition Status: Chronic Current Visit: Yes Code(s): E46 - Unspecified protein-calorie malnutrition (2) Other specified peripheral vascular diseases Status: Chronic Current Visit: Yes Code(s): I73.89 - Other specified peripheral vascular diseases (3) Type 2 diabetes mellitus with diabetic polyneuropathy Status: Chronic Current Visit: Yes Code(s): E11.42 - Type 2 diabetes mellitus with diabetic polyneuropathy (4) Ulcer of right foot with fat layer exposed Status: Chronic Current Visit: Yes Code(s): L97.512 - Non-pressure chronic ulcer of other part of right foot with fat layer exposed Type of Wound Date of Service: 12/26/17 Chief Complaint: Right heel wound History of Wound: This 67-year-old female with multiple comorbidities was seen today in the wound healing center for right heel ulcer with an onset of September 26, 2017. She is approved for epi fix application and is ready for application today. She denies pain, fever, chill, nausea, vomiting. Progress of Wound: Improved - Physical Exam Vital Signs Temp Pulse Resp BP 97.1 F L 87 16 149/86 H 12/26/17 08:18 12/26/17 08:18 12/26/17 08:18 12/26/17 08:18 General: Alert, Oriented x3, Cooperative HEENT: Atraumatic Extremities: No cyanosis, Capillary Refill Less than 3 Seconds, No Calf Tenderness, Diminished Peripheral Pulses, Edema - Controlled Skin: Ulcer/ Wound - No purulence, no erythema, no streaking. Epithelialization around the margins are noted Wound Measurements and Assessment WC - Nurse 1 - General Ulcer Measurement Start: 12/26/17 08:18 Freq: Status: Active Protocol: Activity Type Activity Date Activity User E-Sign Co-Sign Detail Recorded Client Recorded Date Recorded By Document 12/26/17 08:18 JF [id number] 12/26/17 08:20 BRUNO 12/26/17 08:18 Wound Center Nurse 1 [Ulcer Assessment] #1 R Heel -Combined with other wound No -Current Size (cm) - Length 1.0 -Current Size (cm) - Width 0.4 -Current Size (cm) - Depth 0.2 -Total Square Cm 0.40 -Photo Taken No -Epithelialization Medium 34-66% -Tunneling No -Undermining/Tunneling No -Circular Undermining No -Exudate Amt Small (1-33%) -Exudate Type Serosanguineous -Wound Margin Flat & Intact -Granulation Amt Large (67-100%) -Granulation Quality [place] -Slough/Fibrin Yes -Necrosis Amt Small (1-33%) -Necrotic Tissue Type Adherent Slough -Structure Exposed N/A -Texture (Rebeca-wound Skin Appearance) Assessed Scarring -Moisture (Rebeca-wound Skin Appearance Assessed ) Dry/Scaly -Color (Rebeca-wound Skin Appearance) Assessed -Temperature (Rebeca-wound Skin No Abnormality Appearance) (Pt Warm) -Tenderness on Palpation (Rebeca-wound No Skin Appearance) -Ulcer Cleansing Rinsed/ Irrigated with Saline -Foul Odor after Cleansing No -Anesthetic Used 4% Lidocaine Solution [Edema Assessment] -Lower Limb Edema Present Yes -Right Calf (cm) 34.4 -Right Ankle (cm) 19.7 WC - Nurse 2 - General Ulcer CM Notes Start: 12/26/17 08:18 Freq: Status: Active Protocol: Activity Type Activity Date Activity User E-Sign Co-Sign Detail Recorded Client Recorded Date Recorded By Document 12/26/17 08:36 [id number] 12/26/17 08:37 BRUNO 12/26/17 08:36 Wound Center Nurse 2 [Procedure/Treatment] #1 R Heel -Time 08:36 -Correct Patient Yes -Correct Side, Site, Position Yes -Correct Procedure Yes -Procedure Performed Yes -Type of Procedure Debridement -Clinical Debridement Subcutaneous -Post Debridement Size (cm) - Length 1 -Post Debridement Size (cm) - Width 0.5 -Post Debridement Size (cm) - Depth 0.2 -Total Square Cm 0.5 -Wound/Ulcer Outcome Not Healed -Ulcer Cleansing Rinsed/ Irrigated with Saline -Foul Odor after Cleansing No -Bioengineered Tissue Yes -Type of bioengineered Tissue EPIFIX -Expiration Date 09/21/22 -Product Lot Number [id number] -Percent Used 100 -Saline Lot Number [id number] -Bleeding Controlled with Pressure -Treatment Response Procedure Tolerated Well [See Physician Procedure note for Specifics] Pain Scale: 0-10 Numeric [Pain] -Is Patient Pain Free? Yes Musculoskeletal: No Tenderness to Palpation of Joints or Extremities, Muscle Wasting, - - No pain with wound manipulation today Neurological: - - Lack of epicritic sensation light touch Psych/Mental Status: Normal Affect, Appropriate Debridement Note Post-Debridement Measurements/Treatment WC - Nurse 2 - General Ulcer CM Notes Start: 12/26/17 08:18 Freq: Status: Active Protocol: Activity Type Activity Date Activity User E-Sign Co-Sign Detail Recorded Client Recorded Date Recorded By Document 12/26/17 08:36 BRUNO [id number] 12/26/17 08:37 BRUNO 12/26/17 08:36 Wound Center Nurse 2 #1 R Heel -Time 08:36 -Correct Patient Yes -Correct Side, Site, Position Yes -Correct Procedure Yes -Procedure Performed Yes -Type of Procedure Debridement -Clinical Debridement Subcutaneous -Post Debridement Size (cm) - Length 1 -Post Debridement Size (cm) - Width 0.5 -Post Debridement Size (cm) - Depth 0.2 -Total Square Cm 0.5 -Wound/Ulcer Outcome Not Healed -Ulcer Cleansing Rinsed/ Irrigated with Saline -Foul Odor after Cleansing No -Bioengineered Tissue Yes -Type of bioengineered Tissue EPIFIX -Expiration Date 09/21/22 -Product Lot Number [id number] -Percent Used 100 -Saline Lot Number [id number] -Bleeding Controlled with Pressure -Treatment Response Procedure Tolerated Well Pain Scale: 0-10 Numeric Is Patient Pain Free? Yes Wound debrided: posterior heel Laterality: Right Wound Grade/Stage: grade 1 Type of Debridement: Excisional debridement Anesthesia Used: 4% Lidocaine Solution Depth: in the subcutaneous layer Percentage of wound debrided: 100 Instrument Used: #15 blade Tissue Removed: fibrous, devitalized subcutaneous, biofilm, slough Severity: Fat Layer Exposed Amount of bleeding with debridement: Mild Bleeding Controlled with: Pressure Patient tolerated procedure well Assessment/Plan Active Problems Malnutrition (Chronic) Other specified peripheral vascular diseases (Chronic) Type 2 diabetes mellitus with diabetic polyneuropathy (Chronic) Ulcer of right foot with fat layer exposed (Chronic) Assessment: Chronic ulcer right heel fat layer exposed. Delayed healing. Diabetes with suspected neuropathy. History of peripheral vascular disease. Malnutrition Plan: I reviewed and discussed the case today with the patient. Subcutaneous debridement was performed as noted in the clinical panel. Epifix, advanced wound care product, was applied after saline irrigation according to standard protocol. This was secured in place with Steri-Strips and wound gel. She tolerated this well. The indications and benefits and anticipated healing course were discussed. She was reassured there are no signs of infection or deeper tissue exposed. I do not recommend antibiotics. To keep pressure off of this site by continuing to wear surgical shoes during ambulation. To hang heels over a pillow in bed to float this area in the air. Offloading felt pads were applied to the inside of her surgical shoe to offload the heel site. To continue with proper nutritional control, glycemic control, and supplementation to optimize healing. To continue glucerna nutritional suppplementation. To control edema with Tubigrip application. Her medical records from the [facility] particularly with her primary care physician and vascular surgery intervention have been requested and reviewed previously. The findings include the following from November 23, 2017; white blood cell count 8.1 glucose 282, creatinine 0.7, albumin 4.2, hemoglobin A1c 8.2%. I reviewed the non invasive vascular studies which demonstrates significant calcification. All of her questions were answered. RTC 1 week or call sooner if questions or concerns.
--- NOTE | 2017-12-26 08:59 | PN.PCM_ITS ---
(1) Malnutrition Status: Chronic Current Visit: Yes Code(s): E46 - Unspecified protein- calorie malnutrition (2) Other specified peripheral vascular diseases Status: Chronic Current Visit: Yes Code(s): I73.89 - Other specified peripheral vascular diseases (3) Type 2 diabetes mellitus with diabetic polyneuropathy Status: Chronic Current Visit: Yes Code(s): E11.42 - Type 2 diabetes mellitus with diabetic polyneuropathy (4) Ulcer of right foot with fat layer exposed Status: Chronic Current Visit: Yes Code(s): L97.512 - Non-pressure chronic ulcer of other part of right foot with fat layer exposed Type of Wound Date of Service: 12/26/17 Chief Complaint: Right heel wound History of Wound: This 67-year-old female with multiple comorbidities was seen today in the wound healing center for right heel ulcer with an onset of September 26, 2017. She is approved for epi fix application and is ready for application today. She denies pain, fever, chill, nausea, vomiting. Progress of Wound: Improved - Physical Exam Vital Signs Temp Pulse Resp BP 97.1 F L 87 16 149/86 H 12/26/17 08:18 12/26/17 08:18 12/26/17 08:18 12/26/17 08:18 General: Alert, Oriented x3, Cooperative HEENT: Atraumatic Extremities: No cyanosis, Capillary Refill Less than 3 Seconds, No Calf Tenderness, Diminished Peripheral Pulses, Edema - Controlled Skin: Ulcer/ Wound - No purulence, no erythema, no streaking. Epithelialization around the margins are noted Wound Measurements and Assessment WC - Nurse 1 - General Ulcer Measurement Start: 12/26/17 08:18 Freq: Status: Active Protocol: Activity Type Activity Date Activity User E-Sign Co-Sign Detail Recorded Client Recorded Date Recorded By Document 12/26/17 08:18 JF [id number] 12/26/17 08:20 BRUNO 12/26/17 08:18 Wound Center Nurse 1 [Ulcer Assessment] #1 R Heel -Combined with other wound No -Current Size (cm) - Length 1.0 -Current Size (cm) - Width 0.4 -Current Size (cm) - Depth 0.2 -Total Square Cm 0.40 -Photo Taken No -Epithelialization Medium 34-66% -Tunneling No -Undermining/Tunneling No -Circular Undermining No -Exudate Amt Small (1-33%) -Exudate Type Serosanguineous -Wound Margin Flat & Intact -Granulation Amt Large (67-100%) -Granulation Quality Red -Slough/Fibrin Yes -Necrosis Amt Small (1-33%) -Necrotic Tissue Type Adherent Slough -Structure Exposed N/A -Texture (Rebeca-wound Skin Appearance) Assessed Scarring -Moisture (Rebeca-wound Skin Appearance Assessed ) Dry/Scaly -Color (Rebeca-wound Skin Appearance) Assessed -Temperature (Rebeca-wound Skin No Abnormality Appearance) (Pt Warm) -Tenderness on Palpation (Rebeca-wound No Skin Appearance) -Ulcer Cleansing Rinsed/ Irrigated with Saline -Foul Odor after Cleansing No -Anesthetic Used 4% Lidocaine Solution [Edema Assessment] -Lower Limb Edema Present Yes -Right Calf (cm) 34.4 -Right Ankle (cm) 19.7 WC - Nurse 2 - General Ulcer CM Notes Start: 12/26/17 08:18 Freq: Status: Active Protocol: Activity Type Activity Date Activity User E-Sign Co-Sign Detail Recorded Client Recorded Date Recorded By Document 12/26/17 08:36 [id number] 12/26/17 08:37 BRUNO 12/26/17 08:36 Wound Center Nurse 2 [Procedure/Treatment] #1 R Heel -Time 08:36 -Correct Patient Yes -Correct Side, Site, Position Yes -Correct Procedure Yes -Procedure Performed Yes -Type of Procedure Debridement -Clinical Debridement Subcutaneous -Post Debridement Size (cm) - Length 1 -Post Debridement Size (cm) - Width 0.5 -Post Debridement Size (cm) - Depth 0.2 -Total Square Cm 0.5 -Wound/Ulcer Outcome Not Healed -Ulcer Cleansing Rinsed/ Irrigated with Saline -Foul Odor after Cleansing No -Bioengineered Tissue Yes -Type of bioengineered Tissue EPIFIX -Expiration Date 09/21/22 -Product Lot Number [id number] -Percent Used 100 -Saline Lot Number [id number] -Bleeding Controlled with Pressure -Treatment Response Procedure Tolerated Well [See Physician Procedure note for Specifics] Pain Scale: 0-10 Numeric [Pain] -Is Patient Pain Free? Yes Musculoskeletal: No Tenderness to Palpation of Joints or Extremities, Muscle Wasting, - - No pain with wound manipulation today Neurological: - - Lack of epicritic sensation light touch Psych/Mental Status: Normal Affect, Appropriate Debridement Note Post-Debridement Measurements/Treatment WC - Nurse 2 - General Ulcer CM Notes Start: 12/26/17 08:18 Freq: Status: Active Protocol: Activity Type Activity Date Activity User E-Sign Co-Sign Detail Recorded Client Recorded Date Recorded By Document 12/26/17 08:36 BRUNO [id number] 12/26/17 08:37 BRUNO 12/26/17 08:36 Wound Center Nurse 2 #1 R Heel -Time 08:36 -Correct Patient Yes -Correct Side, Site, Position Yes -Correct Procedure Yes -Procedure Performed Yes -Type of Procedure Debridement -Clinical Debridement Subcutaneous -Post Debridement Size (cm) - Length 1 -Post Debridement Size (cm) - Width 0.5 -Post Debridement Size (cm) - Depth 0.2 -Total Square Cm 0.5 -Wound/Ulcer Outcome Not Healed -Ulcer Cleansing Rinsed/ Irrigated with Saline -Foul Odor after Cleansing No -Bioengineered Tissue Yes -Type of bioengineered Tissue EPIFIX -Expiration Date 09/21/22 -Product Lot Number [id number] -Percent Used 100 -Saline Lot Number [id number] -Bleeding Controlled with Pressure -Treatment Response Procedure Tolerated Well Pain Scale: 0-10 Numeric Is Patient Pain Free? Yes Wound debrided: posterior heel Laterality: Right Wound Grade/Stage: grade 1 Type of Debridement: Excisional debridement Anesthesia Used: 4% Lidocaine Solution Depth: in the subcutaneous layer Percentage of wound debrided: 100 Instrument Used: #15 blade Tissue Removed: fibrous, devitalized subcutaneous, biofilm, slough Severity: Fat Layer Exposed Amount of bleeding with debridement: Mild Bleeding Controlled with: Pressure Patient tolerated procedure well Assessment/Plan Active Problems Malnutrition (Chronic) Other specified peripheral vascular diseases (Chronic) Type 2 diabetes mellitus with diabetic polyneuropathy (Chronic) Ulcer of right foot with fat layer exposed (Chronic) Assessment: Chronic ulcer right heel fat layer exposed. Delayed healing. Diabetes with suspected neuropathy. History of peripheral vascular disease. Malnutrition Plan: I reviewed and discussed the case today with the patient. Subcutaneous debridement was performed as noted in the clinical panel. Epifix, advanced wound care product, was applied after saline irrigation according to standard protocol. This was secured in place with Steri-Strips and wound gel. She tolerated this well. The indications and benefits and anticipated healing course were discussed. She was reassured there are no signs of infection or deeper tissue exposed. I do not recommend antibiotics. To keep pressure off of this site by continuing to wear surgical shoes during ambulation. To hang heels over a pillow in bed to float this area in the air. Offloading felt pads were applied to the inside of her surgical shoe to offload the heel site. To continue with proper nutritional control, glycemic control, and supplementation to optimize healing. To continue glucerna nutritional suppplementation. To control edema with Tubigrip application. Her medical records from the [facility] particularly with her primary care physician and vascular surgery intervention have been requested and reviewed previously. The findings include the following from November 23, 2017; white blood cell count 8.1 glucose 282, creatinine 0.7, albumin 4.2, hemoglobin A1c 8.2%. I reviewed the non invasive vascular studies which demonstrates significant calcification. All of her questions were answered. RTC 1 week or call sooner if questions or concerns.
[2018-01-02 09:00] VITALS: BP 150/73; PULSE 92; RESP 16; TEMP 37.1; BMI 66.2
--- NOTE | 2018-01-02 09:35 | PN.PCM_ITS ---
(1) Ulcer of right foot with fat layer exposed Status: Chronic Current Visit: Yes Code(s): L97.512 - Non-pressure chronic ulcer of other part of right foot with fat layer exposed (2) Malnutrition Status: Chronic Current Visit: Yes Code(s): E46 - Unspecified protein- calorie malnutrition (3) Other specified peripheral vascular diseases Status: Chronic Current Visit: Yes Code(s): I73.89 - Other specified peripheral vascular diseases (4) Type 2 diabetes mellitus with diabetic polyneuropathy Status: Chronic Current Visit: Yes Code(s): E11.42 - Type 2 diabetes mellitus with diabetic polyneuropathy Type of Wound Date of Service: 01/02/18 Chief Complaint: Right heel wound History of Wound: This 67-year-old female with multiple comorbidities was seen today in the wound healing center for right heel ulcer with an onset of September 26, 2017. She is approved for epi fix application and is ready for application today. She denies pain, fever, chill, nausea, vomiting. Progress of Wound: Improved - Physical Exam Vital Signs Temp Pulse Resp BP 98.7 F 92 16 150/73 H 01/02/18 09:00 01/02/18 09:00 01/02/18 09:00 01/02/18 09:00 General: Alert, Oriented x3, Cooperative Extremities: No cyanosis, Capillary Refill Less than 3 Seconds, No Calf Tenderness - neg cindy and shukla, Diminished Peripheral Pulses, Edema - mild Skin: Ulcer/ Wound - No maceration, no erythema, streaking, no odor, no infection, n o exposed bone Wound Measurements and Assessment WC - Nurse 1 - General Ulcer Measurement Start: 12/26/17 08:18 Freq: Status: Active Protocol: Activity Type Activity Date Activity User E-Sign Co-Sign Detail Recorded Client Recorded Date Recorded By Document 01/02/18 09:00 JF [id number] 01/02/18 09:02 BRUNO 01/02/18 09:00 Wound Center Nurse 1 [Ulcer Assessment] #1 R Heel -Current Size (cm) - Length 0.1 -Current Size (cm) - Width 0.1 -Current Size (cm) - Depth 0.1 -Total Square Cm 0.01 -Photo Taken No -Exudate Amt None Present (0 %) -Exudate Type Serosanguineous -Wound Margin Thickened -Granulation Amt None Present (0 %) -Necrosis Amt Large (67-100%) -Necrotic Tissue Type Adherent Slough -Structure Exposed N/A -Texture (Rebeca-wound Skin Appearance) No Abnormality -Moisture (Rebeca-wound Skin Appearance No Abnormality ) -Color (Rebeca-wound Skin Appearance) No Abnormality -Temperature (Rebeca-wound Skin No Abnormality Appearance) (Pt Warm) -Ulcer Cleansing Rinsed/ Irrigated with Saline -Foul Odor after Cleansing No -Anesthetic Used 4% Lidocaine Solution [Edema Assessment] -Right Calf (cm) 35 -Right Ankle (cm) 19.8 - Nurse 2 - General Ulcer CM Notes Start: 12/26/17 08:18 Freq: Status: Active Protocol: Activity Type Activity Date Activity User E-Sign Co-Sign Detail Recorded Client Recorded Date Recorded By Document 01/02/18 09:19 [id number] 01/02/18 09:25 01/02/18 09:19 Wound Center Nurse 2 [Procedure/Treatment] #1 R Heel -Time 09:19 -Correct Patient Yes -Correct Side, Site, Position Yes -Correct Procedure Yes -Procedure Performed Yes -Type of Procedure Debridement -Clinical Debridement Subcutaneous -Post Debridement Size (cm) - Length 0.8 -Post Debridement Size (cm) - Width 0.5 -Post Debridement Size (cm) - Depth 0.2 -Total Square Cm 0.40 -Wound/Ulcer Outcome Not Healed -Ulcer Cleansing Rinsed/ Irrigated with Saline -Foul Odor after Cleansing No -Bioengineered Tissue Yes -Type of bioengineered Tissue EPIFIX -Expiration Date 09/21/22 -Product Lot Number [id number] -Percent Used 100 -Saline Lot Number [id number] -Topical Lidocaine (%) 4 -Bleeding Controlled with Pressure -Treatment Response Procedure Tolerated Well [See Physician Procedure note for Specifics] Pain Scale: 0-10 Numeric [Pain] -Is Patient Pain Free? Yes Musculoskeletal: No Tenderness to Palpation of Joints or Extremities, Muscle Wasting Neurological: - - lack of epicritic sensation noted Psych/Mental Status: Normal Affect, Appropriate Debridement Note Post-Debridement Measurements/Treatment - Nurse 2 - General Ulcer CM Notes Start: 12/26/17 08:18 Freq: Status: Active Protocol: Activity Type Activity Date Activity User E-Sign Co-Sign Detail Recorded Client Recorded Date Recorded By Document 12/26/17 08:36 [id number] 12/26/17 08:37 Document 01/02/18 09:19 [id number] 01/02/18 09:25 12/26/17 01/02/18 08:36 09:19 Wound Center Nurse 2 #1 R Heel -Time 08:36 09:19 -Correct Patient Yes Yes -Correct Side, Site, Position Yes Yes -Correct Procedure Yes Yes -Procedure Performed Yes Yes -Type of Procedure Debridement Debridement -Clinical Debridement Subcutaneous Subcutaneous -Post Debridement Size (cm) - Length 1 0.8 -Post Debridement Size (cm) - Width 0.5 0.5 -Post Debridement Size (cm) - Depth 0.2 0.2 -Total Square Cm 0.5 0.40 -Wound/Ulcer Outcome Not Healed Not Healed -Ulcer Cleansing Rinsed/ Rinsed/ Irrigated with Irrigated with Saline Saline -Foul Odor after Cleansing No No -Bioengineered Tissue Yes Yes -Type of bioengineered Tissue EPIFIX EPIFIX -Expiration Date 09/21/22 09/21/22 -Product Lot Number [id number] -Percent Used 100 100 -Saline Lot Number [id number] -Topical Lidocaine (%) 4 -Bleeding Controlled with Pressure Pressure -Treatment Response Procedure Procedure Tolerated Well Tolerated Well Pain Scale: 0-10 Numeric Is Patient Pain Free? Yes Yes Wound debrided: posterior heel Laterality: Right Wound Grade/Stage: grade 1 Type of Debridement: Excisional debridement Anesthesia Used: 4% Lidocaine Solution Depth: in the subcutaneous layer Percentage of wound debrided: 100 Instrument Used: #15 blade Tissue Removed: fibrous, devitalized subcutaneous, biofilm, slough Severity: Fat Layer Exposed Amount of bleeding with debridement: Mild Bleeding Controlled with: Pressure Patient tolerated procedure well Assessment/Plan Active Problems Malnutrition (Chronic) Other specified peripheral vascular diseases (Chronic) Type 2 diabetes mellitus with diabetic polyneuropathy (Chronic) Ulcer of right foot with fat layer exposed (Chronic) Assessment: Chronic ulcer right heel fat layer exposed. Delayed healing. Diabetes with suspected neuropathy. History of peripheral vascular disease. Malnutrition Plan: I reviewed and discussed the case today with the patient. Subcutaneous debridement was performed as noted in the clinical panel. Epifix, advanced wound care product, was applied after saline irrigation according to standard protocol. This was secured in place with Steri-Strips and wound gel. She tolerated this well. The indications and benefits and anticipated healing course were discussed. She was reassured there are no signs of infection or deeper tissue exposed. I do not recommend antibiotics. To keep pressure off of this site by continuing to wear surgical shoes during ambulation. To hang heels over a pillow in bed to float this area in the air. Offloading felt pads were applied to the inside of her surgical shoe to offload the heel site.PRAFO offloading device prescription was provided today. To continue with proper nutritional control, glycemic control, and supplementation to optimize healing. To continue glucerna nutritional suppplementation. To control edema with Tubigrip application. Her medical records from the [facility] particularly with her primary care physician and vascular surgery intervention have been requested and reviewed previously. The findings include the following from November 23, 2017; white blood cell count 8.1 glucose 282, creatinine 0.7, albumin 4.2, hemoglobin A1c 8.2%. I reviewed the non invasive vascular studies which demonstrates significant calcification. All of her questions were answered. RTC 1 week or call sooner if questions or concerns.
== END 2018-01-19 23:59 ==
LOC: WC 09:15
PROVIDERS: PCP Family Medicine; Visit Provider Podiatrist
DX: E11.622 Type 2 diabetes mellitus with other skin ulcer (principal); E11.42 Type 2 diabetes mellitus with diabetic polyneuropathy; E11.51 Type 2 diabetes mellitus with diabetic peripheral angiopathy without gangrene; L97.512 Non-pressure chronic ulcer of other part of right foot with fat layer exposed; R60.0 Localized edema
CPT/HCPCS: 15275; Q4131

== ENCOUNTER 2018-01-23 08:12 | Outpatient (RCR) | payer MEDICARE, OTHER, SELFPAY ==
[2018-01-20 00:50] VITALS: BP 151/89; PULSE 92; RESP 16; TEMP 37.1; BMI 66.2
[2018-01-23 09:09] VITALS: BP 121/76; PULSE 86; RESP 18; TEMP 36.2; BMI 66.2
--- NOTE | 2018-01-23 10:23 | PN.PCM_ITS ---
(1) Ulcer of right foot with fat layer exposed Status: Resolved Current Visit: Yes Code(s): L97.512 - Non-pressure chronic ulcer of other part of right foot with fat layer exposed (2) Type 2 diabetes mellitus with diabetic polyneuropathy Status: Chronic Current Visit: Yes Code(s): E11.42 - Type 2 diabetes mellitus with diabetic polyneuropathy Type of Wound Date of Service: 01/24/18 Chief Complaint: Right heel wound History of Wound: This 67-year-old female with multiple comorbidities was seen today in the wound healing center for right heel ulcer with an onset of September 26, 2017. She missed several less appointments and left her dressing in place for 3 weeks. She denies pain, fever, chill, nausea, vomiting. She denies pain. Progress of Wound: Healed - Physical Exam Vital Signs Temp Pulse Resp BP 97.2 F L 86 18 121/76 H 01/23/18 09:09 01/23/18 09:09 01/23/18 09:09 01/23/18 09:09 General: Alert, Oriented x3, Cooperative Extremities: No cyanosis, Capillary Refill Less than 3 Seconds, No Calf Tenderness, Diminished Peripheral Pulses, Edema - Mild Skin: Ulcer/ Wound - Full epithelialization is noted to the posterior heel and this wound is healed. No purulence, no erythema, no streaking, no maceration or necrosis. Wound Measurements and Assessment WC - Nurse 1 - General Ulcer Measurement Start: 01/23/18 09:09 Freq: Status: Active Protocol: Activity Type Activity Date Activity User E-Sign Co-Sign Detail Recorded Client Recorded Date Recorded By Document 01/23/18 09:09 [id number] 01/23/18 09:16 DL 01/23/18 09:09 Wound Center Nurse 1 [Ulcer Assessment] #1 R Heel -Current Size (cm) - Length 0.6 -Current Size (cm) - Width 0.4 -Current Size (cm) - Depth 0.1 -Total Square Cm 0.24 -Photo Taken No -Exudate Amt None Present (0 %) -Wound Margin Thickened -Granulation Amt None Present (0 %) -Necrosis Amt Large (67-100%) -Necrotic Tissue Type Eschar -Structure Exposed N/A -Texture (Rebeca-wound Skin Appearance) No Abnormality -Moisture (Rebeca-wound Skin Appearance No Abnormality ) -Color (Rebeca-wound Skin Appearance) No Abnormality -Temperature (Rebeca-wound Skin No Abnormality Appearance) (Pt Warm) -Ulcer Cleansing Rinsed/ Irrigated with Saline -Foul Odor after Cleansing No -Anesthetic Used 4% Lidocaine Solution [Edema Assessment] -Right Calf (cm) 33 -Right Ankle (cm) 19.2 HEIDI - Nurse 2 - General Ulcer CM Notes Start: 01/23/18 09:09 Freq: Status: Active Protocol: Activity Type Activity Date Activity User E-Sign Co-Sign Detail Recorded Client Recorded Date Recorded By Document 01/23/18 09:31 [id number] 01/23/18 09:32 01/23/18 09:31 Wound Center Nurse 2 [Procedure/Treatment] #1 R Heel -Correct Patient No -Correct Side, Site, Position No -Correct Procedure No -Procedure Performed No -Post Debridement Size (cm) - Length 0 -Post Debridement Size (cm) - Width 0 -Post Debridement Size (cm) - Depth 0 -Total Square Cm 0 -Wound/Ulcer Outcome Healed- Epithelialized -Bleeding Controlled with NA [See Physician Procedure note for Specifics] Pain Scale: 0-10 Numeric [Pain] -Is Patient Pain Free? Yes Musculoskeletal: No Tenderness to Palpation of Joints or Extremities, Muscle Wasting Neurological: Sensory exam intact to light touch and pain Psych/Mental Status: Normal Affect, Appropriate Debridement Note Post-Debridement Measurements/Treatment - Nurse 2 - General Ulcer CM Notes Start: 01/23/18 09:09 Freq: Status: Active Protocol: Activity Type Activity Date Activity User E-Sign Co-Sign Detail Recorded Client Recorded Date Recorded By Document 01/23/18 09:31 [id number] 01/23/18 09:32 01/23/18 09:31 Wound Center Nurse 2 #1 R Heel -Correct Patient No -Correct Side, Site, Position No -Correct Procedure No -Procedure Performed No -Post Debridement Size (cm) - Length 0 -Post Debridement Size (cm) - Width 0 -Post Debridement Size (cm) - Depth 0 -Total Square Cm 0 -Wound/Ulcer Outcome Healed- Epithelialized -Bleeding Controlled with NA Pain Scale: 0-10 Numeric Is Patient Pain Free? Yes No debridement was completed today - The wound has healed Assessment/Plan Active Problems Type 2 diabetes mellitus with diabetic polyneuropathy (Chronic) Assessment: Chronic ulcer right heel fat layer exposed-healed. Delayed healing. Diabetes with suspected neuropathy. History of peripheral vascular disease. Malnutrition Plan: I reviewed and discussed the case today with the patient. No debridement was performed because the wound has healed. She was reassured there are no signs of infection or deeper tissue exposed. To keep pressure off of this site by continuing to wear surgical shoes during ambulation. She has allergy issues with a backless structure and I recommend she continues with this. To hang heels over a pillow in bed to float this area in the air. I also offered her extra-depth diabetic shoes with orthotics to prevent ulcer formation and she will return to the foot and ankle center to get set up with this in the near future. To continue with proper nutritional control, glycemic control, and supplementation to maintain health. To control edema with Tubigrip application and transition to compression stocking in which a prescription was provided. She will be discharged from the wound care center at this time. To follow-up at the foot and ankle center within the next 2-3 months for diabetic foot check, palliative care if needed, and fitting of extra- depth diabetic shoes. I answered all her questions.
== END 2018-02-18 23:59 ==
LOC: WC 08:12
PROVIDERS: PCP Family Medicine; Visit Provider Podiatrist
DX: Z09 Encounter for follow-up examination after completed treatment for conditions other than malignant neoplasm (principal); E11.42 Type 2 diabetes mellitus with diabetic polyneuropathy
CPT/HCPCS: 99212; G0463

== ENCOUNTER → 2018-02-25 08:12 | Outpatient (CLI) | payer MEDICARE, OTHER, SELFPAY ==
[2018-02-25 08:30] LABS: Absolute Lymphocyte Count 1.64 X10^3/ul (0.83-4.51); Absolute Neutrophil Count 4.8 X10^3/uL (2.0-7.7); Basophil# 0.02 X10^3/uL; Basophil% 0.3 % (0-1); Eosinophil# 0.13 X10^3/uL; Eosinophils% 1.8 % (0-5); Hematocrit 36.1 % (37-47); Hemoglobin 11.7 g/dl (12.0-15.0); Lymphocyte # 1.64 X10^3/ul (4.0); Lymphocyte % 23.1 % (19-41); Mean Corp Hgb Conc 32.4 g/gl (32-36); Mean Corpuscular Hgb 30.2 pg (27.0-32.0); Mean Corpuscular Volume 93.3 fL (81-99); Mean Platelet Vol. 9.2 fl (6.2-12.0); Monocyte# 0.53 X10^3/uL; Monocyte% 7.5 % (0-10); Neutrophil # 4.78 X10^3/uL (2.7-7.7); Neutrophil % 67.2 % (47-70); Platelet Count 318 K/mm3 (150-450); RBC Distribution Width CV 12.7 % (11.6-14.6); RBC Distribution Width SD 42.6 fl (35.1-43.9); Red Blood Count 3.87 M/mm3 (4.2-5.4); White Blood Count 7.1 K/mm3 (4.4-11.0)
[2018-02-25 08:31] LABS: POSITIVE COUNT NO; POSITIVE DIFFERENTIAL NO; POSITIVE MORPHOLOGY NO
[2018-02-25 09:02] LABS: ALB/GLOB Ratio 0.9 RATIO (0.9-2.4); AST(SGOT) 12 U/L (15-37); Alanine Aminotransfer ALT/SGPT 22 U/L (13-56); Albumin, Serum 3.6 g/dL (3.2-5.0); Alkaline Phosphatase 103 U/L (45-117); Anion Gap 10 (5-15); BUN 21 mg/dL (7-18); BUN/Creat Ratio 22.9 RATIO (10-20); Calcium,Total 9.5 mg/dL (8.5-10.1); Chloride 106 mmol/L (98-107); Creatinine, Serum 0.92 mg/dL (0.55-1.02); EST Glomerular Filtration Rate 65 mL/min (>60); Est Glom Filt Rate - Afr Amer 78 mL/min (>60); Glucose 136 mg/dL (74-106); Potassium 4.2 mmol/L (3.5-5.1); Prealbumin 25.9 mg/dL (20.0-40.0); Protein, Total 7.6 g/dL (6.4-8.2); Sodium Level 140 mmol/L (136-145)
== END ==
PROVIDERS: Family Provider Family Medicine; PCP Family Medicine; Visit Provider Nurse Practitioner
DX: E11.621 Type 2 diabetes mellitus with foot ulcer (principal); L97.529 Non-pressure chronic ulcer of other part of left foot with unspecified severity
CPT/HCPCS: 36415; 80053; 84134; 85025

== ENCOUNTER 2018-03-15 09:00 | Outpatient (RCR) | payer MEDICARE, OTHER, SELFPAY ==
[2018-02-19 00:42] VITALS: BP 151/89; PULSE 86; RESP 18; TEMP 36.2; BMI 66.2
[2018-02-22 11:32] VITALS: BP 147/81; PULSE 93; RESP 16; TEMP 36.2; BMI 30.2
--- NOTE | 2018-02-26 12:59 | HP.PCM_ITS ---
(1) Peripheral artery disease Status: Chronic Current Visit: Yes Code(s): I73.9 - Peripheral vascular disease, unspecified (2) Malnutrition Status: Chronic Current Visit: No Qualifiers: Malnutrition type: protein-calorie malnutrition Code(s): E46 - Unspecified protein-calorie malnutrition (3) Other specified peripheral vascular diseases Status: Chronic Current Visit: Yes Code(s): I73.89 - Other specified peripheral vascular diseases (4) Type 2 diabetes mellitus with diabetic polyneuropathy Status: Chronic Current Visit: Yes Code(s): E11.42 - Type 2 diabetes mellitus with diabetic polyneuropathy History of Present Illness Date of Service: 03/08/18 Chief Complaint: L first metatarsal head ulcer History of Wound: This 67-year-old female with multiple comorbidities was seen today in the wound healing center for left metatarsal head ulcer starting as a blister on . She denies pain, fever, chill, nausea, vomiting. She denies pain becasueof her polyneuropathy . Currently taking ciprofloxin and doxycycline from her primary DR started on 02/22/18. Past Medical History Past Medical History: Chronic Problems Peripheral artery disease (Chronic) Malnutrition (Chronic) Other specified peripheral vascular diseases (Chronic) Type 2 diabetes mellitus with diabetic polyneuropathy (Chronic) Allergies/Adverse Reactions: Allergies king Allergy (Verified 02/22/18 11:41) Unknown mold Allergy (Verified 02/22/18 11:41) Unknown perfume Allergy (Verified 02/22/18 11:41) Unknown cortisone Adverse Reaction (Verified 11/21/17 15:19) Unknown latex Adverse Reaction (Verified 11/21/17 15:19) Hives strawberry Adverse Reaction (Verified 11/21/17 15:19) Hives PET Allergy (Unknown, Uncoded 02/22/18 11:41) Unknown Home Medications: Ambulatory Orders Medication Instructions Recorded Aspirin 81 mg PO DAILY@0800 11/21/17 Atorvastatin Calcium 20 mg PO DAILY 11/21/17 Cetirizine HCl [Zyrtec] 10 mg PO DAILY 11/21/17 Clopidogrel Bisulfate [Plavix] 75 mg PO DAILY 11/21/17 Cozaar 25 mg PO DAILY 11/21/17 Insulin NPH Human Isophane See Protocol SC DAILY 11/21/17 [Novolin N] Latanoprost [Xalatan] 2.5 ml OP QHS 11/21/17 Metformin HCl 500 mg PO BID 11/21/17 Ciprofloxacin [Cipro] 500 mg PO BID 02/22/18 Doxycycline Hyclate 100 mg PO BID 02/22/18 Smoking Status: Never smoker Review of Systems Constitutional: Denies: Chills, Fever Eyes: Denies: Blurred vision, Drainage, Pain HEENT: Denies: Difficulty Hearing, Difficulty Swallowing, Sore Throat, Visual Changes Cardiovascular: Denies: Chest Pain, Palpitations, Syncope Respiratory: Denies: Cough, Shortness of Breath Gastrointestinal: Denies: Abdominal Pain, Nausea, Vomiting Genitourinary: Denies: Dysuria, Frequency Musculoskeletal: Denies: Joint Pain, Muscle pain Skin: Denies: Jaundice, Rash Neurological: Denies: Balance problems, Change in Speech, Difficulty swallowing , Focal weakness Psychiatric: Denies: Anxiety, Depression Endocrine: Denies: Change in Body Habitus Hematologic/ Lymphatic: Denies: Adenopathy - Physical Exam Vital Signs Temp Pulse Resp BP 97.1 F L 93 16 147/81 H 02/22/18 11:32 02/22/18 11:32 02/22/18 11:32 02/22/18 11:32 General: Oriented x3, Cooperative, Well developed HEENT: Atraumatic, PERRLA Oral: Moist Mucosa Neck: Supple, No JVD Lungs: Clear to auscultation, Normal air movement Cardiovascular: Regular rate, Regular Rhythm Abdomen: Bowel Sounds Present, Soft, Non Tender, No Hepato-splenomegaly Extremities: No clubbing, No edema Skin: Ulcer/ Wound - l foot ulcer Musculoskeletal: No Tenderness to Palpation of Joints or Extremities Lymphatic: No Cervical, Supraclavicular, or Inguinal Adenopathy Neurological: Cranial nerves II-XII grossly intact, Neuro grossly intact Psych/Mental Status: Normal Affect, Appropriate, Alert and oriented to time, place, person, mood and affect Debridement Note Wound debrided: L foot 1st metatarsal head Type of Debridement: Excisional debridement Anesthesia Used: 5% Lidocaine Gel Depth: Down to and including healthy tissue, in the subcutaneous layer Percentage of wound debrided: 100 Instrument Used: 5mm curette Tissue Removed: fibrin Severity: Limited To Skin Breakdown Amount of bleeding with debridement: Moderate Bleeding Controlled with: Compression and gauze Patient tolerated procedure well Assessment/Plan labs cbc with diff prealbumin and cmp Active Problems Peripheral artery disease (Chronic) Ulcer of left foot due to type 2 diabetes mellitus (Acute) Other specified peripheral vascular diseases (Chronic) Type 2 diabetes mellitus with diabetic polyneuropathy (Chronic) Assessment: Chronic ulcer L first meatarsal head. Diabetes with suspected neuropathy. History of peripheral vascular disease. periphaeral arterial disease. Malnutrition Plan: I reviewed and discussed the case today with the patient. Wash the wound and leg with hibiclens apply aquacel siver to the base moistine cover with adaptic guaze and makenzie. Continue with proper nutritional control, glycemic control, and supplementation to maintain health. labs will be done and called to her
[2018-03-08 08:55] VITALS: BP 148/73; PULSE 104; RESP 18; TEMP 36; BMI 30.2
--- NOTE | 2018-03-08 11:10 | PCM.WC.PN ---
(1) Peripheral artery disease Status: Chronic Current Visit: Yes Code(s): I73.9 - Peripheral vascular disease, unspecified (2) Malnutrition Status: Chronic Current Visit: No Qualifiers: Malnutrition type: protein-calorie malnutrition Code(s): E46 - Unspecified protein-calorie malnutrition (3) Other specified peripheral vascular diseases Status: Chronic Current Visit: Yes Code(s): I73.89 - Other specified peripheral vascular diseases (4) Type 2 diabetes mellitus with diabetic polyneuropathy Status: Chronic Current Visit: Yes Code(s): E11.42 - Type 2 diabetes mellitus with diabetic polyneuropathy (5) Ulcer of left foot due to type 2 diabetes mellitus Status: Acute Current Visit: Yes Code(s): E11.621 - Type 2 diabetes mellitus with foot ulcer; L97.529 - Non-pressure chronic ulcer of other part of left foot with unspecified severity Type of Wound Date of Service: 03/08/18 Chief Complaint: L foot metatarsal head ulcer History of Wound: This 67-year-old female with multiple comorbidities was seen today in the wound healing center for left metatarsal head ulcer starting as a blister on . She denies pain, fever, chill, nausea, vomiting. She denies pain becasueof her polyneuropathy . Currently taking ciprofloxin and doxycycline from her primary DR started on 02/22/18. Progress of Wound: Left foot ulcer is almost closed and has a tiny slit of skin that she keeps callusing over. Patient has been wearing the flatfoot shoe and padding it very well. The pre-albumin was good it was 24 patient should heal within the next week we will change our treatment to hydrogel to close. - Physical Exam Vital Signs Temp Pulse Resp BP 96.8 F L 104 H 18 148/73 H 03/08/18 08:55 03/08/18 08:55 03/08/18 08:55 03/08/18 08:55 General: Oriented x3, Cooperative, Well developed HEENT: Atraumatic, PERRLA Oral: Moist Mucosa Neck: Supple, No JVD Lungs: Clear to auscultation, Normal air movement Cardiovascular: Regular rate, Regular Rhythm Abdomen: Bowel Sounds Present, Soft, Non Tender, No Hepato-splenomegaly Extremities: No clubbing, No edema, - - Left foot ulcer ball of foot Wound Measurements and Assessment WC - Nurse 1 - General Ulcer Measurement Start: 02/22/18 10:00 Freq: Status: Active Protocol: Activity Type Activity Date Activity User E-Sign Co-Sign Detail Recorded Client Recorded Date Recorded By Document 03/08/18 08:55 DL [id number] 03/08/18 09:03 DL 03/08/18 08:55 Wound Center Nurse 1 [Ulcer Assessment] #2- LT 1ST MET HEAD PLANTAR -Current Size (cm) - Length 0.4 -Current Size (cm) - Width 0.2 -Current Size (cm) - Depth 0.2 -Total Square Cm 0.08 -Photo Taken No -Exudate Amt None Present (0 %) -Wound Margin Thickened -Granulation Amt Small (1-33%) -Granulation Quality Pale -Necrosis Amt None Present (0 %) -Structure Exposed N/A -Texture (Rebeca-wound Skin Appearance) Callus -Moisture (Rebeca-wound Skin Appearance Dry/Scaly ) -Color (Rebeca-wound Skin Appearance) No Abnormality -Temperature (Rebeca-wound Skin No Abnormality Appearance) (Pt Warm) -Ulcer Cleansing Rinsed/ Irrigated with Saline -Foul Odor after Cleansing No -Anesthetic Used 4% Lidocaine Solution WC - Nurse 2 - General Ulcer CM Notes Start: 02/22/18 10:00 Freq: Status: Active Protocol: Activity Type Activity Date Activity User E-Sign Co-Sign Detail Recorded Client Recorded Date Recorded By Document 03/08/18 10:00 JENNIE [id number] 03/08/18 10:06 JENNIE 03/08/18 10:00 Wound Center Nurse 2 [Procedure/Treatment] -Time 10:01 -Correct Patient Yes -Correct Side, Site, Position Yes -Correct Procedure Yes -Procedure Performed Yes -Type of Procedure Debridement -Clinical Debridement Subcutaneous -Post Debridement Size (cm) - Length 0.1 -Post Debridement Size (cm) - Width 3.0 -Post Debridement Size (cm) - Depth 0 -Total Square Cm 0.30 -Wound/Ulcer Outcome Not Healed -Ulcer Cleansing Rinsed/ Irrigated with Saline -Foul Odor after Cleansing No -Bioengineered Tissue No -Bleeding Controlled with NA -Treatment Response Procedure Tolerated Well [See Physician Procedure note for Specifics] Pain Scale: 0-10 Numeric [Pain] -Is Patient Pain Free? Yes Musculoskeletal: No Tenderness to Palpation of Joints or Extremities Lymphatic: No Cervical, Supraclavicular, or Inguinal Adenopathy Neurological: Cranial nerves II-XII grossly intact, Neuro grossly intact Psych/Mental Status: Normal Affect, Appropriate Debridement Note Post-Debridement Measurements/Treatment WC - Nurse 2 - General Ulcer CM Notes Start: 02/22/18 10:00 Freq: Status: Active Protocol: Activity Type Activity Date Activity User E-Sign Co-Sign Detail Recorded Client Recorded Date Recorded By Document 03/08/18 10:00 JENNIE [id number] 03/08/18 10:06 JENNIE 03/08/18 10:00 Wound Center Nurse 2 #2- LT 1ST MET HEAD PLANTAR -Time 10:01 -Correct Patient Yes -Correct Side, Site, Position Yes -Correct Procedure Yes -Procedure Performed Yes -Type of Procedure Debridement -Clinical Debridement Subcutaneous -Post Debridement Size (cm) - Length 0.1 -Post Debridement Size (cm) - Width 3.0 -Post Debridement Size (cm) - Depth 0 -Total Square Cm 0.30 -Wound/Ulcer Outcome Not Healed -Ulcer Cleansing Rinsed/ Irrigated with Saline -Foul Odor after Cleansing No -Bioengineered Tissue No -Bleeding Controlled with NA -Treatment Response Procedure Tolerated Well Pain Scale: 0-10 Numeric Is Patient Pain Free? Yes Wound debrided: Left foot metatarsal ulcer Type of Debridement: Excisional debridement Anesthesia Used: 5% Lidocaine Gel Depth: Down to and including healthy tissue, in the subcutaneous layer Percentage of wound debrided: 100 Instrument Used: 7mm curette, #15 blade Tissue Removed: Callus devitalized tissue Severity: Limited To Skin Breakdown Amount of bleeding with debridement: None Bleeding Controlled with: Pressure Patient tolerated procedure well Assessment/Plan Active Problems Peripheral artery disease (Chronic) Ulcer of left foot due to type 2 diabetes mellitus (Acute) Other specified peripheral vascular diseases (Chronic) Type 2 diabetes mellitus with diabetic polyneuropathy (Chronic) Assessment: Chronic ulcer L first meatarsal head. Diabetes with suspected neuropathy. History of peripheral vascular disease. periphaeral arterial disease. Malnutrition resolved Plan: Wash foot with Hibiclens. Apply hydrogel then Adaptic gauze and tape. Continue walking in the postop shoe with padding. Follow-up in 1 week
[2018-03-15 08:51] VITALS: BP 125/74; PULSE 94; RESP 18; TEMP 36.4; BMI 30.2
--- NOTE | 2018-03-15 09:38 | PCM.WC.PN ---
(1) Peripheral artery disease Status: Chronic Current Visit: Yes Code(s): I73.9 - Peripheral vascular disease, unspecified (2) Malnutrition Status: Chronic Current Visit: Yes Qualifiers: Malnutrition type: protein-calorie malnutrition Code(s): E46 - Unspecified protein-calorie malnutrition (3) Other specified peripheral vascular diseases Status: Chronic Current Visit: Yes Code(s): I73.89 - Other specified peripheral vascular diseases (4) Type 2 diabetes mellitus with diabetic polyneuropathy Status: Chronic Current Visit: Yes Code(s): E11.42 - Type 2 diabetes mellitus with diabetic polyneuropathy (5) Ulcer of left foot due to type 2 diabetes mellitus Status: Acute Current Visit: Yes Code(s): E11.621 - Type 2 diabetes mellitus with foot ulcer; L97.529 - Non-pressure chronic ulcer of other part of left foot with unspecified severity Type of Wound Date of Service: 03/15/18 Chief Complaint: L first metatarsal head ulcer History of Wound: This 67-year-old female with multiple comorbidities was seen today in the wound healing center for left metatarsal head ulcer starting as a blister on . She denies pain, fever, chill, nausea, vomiting. She denies pain becasueof her polyneuropathy . Currently taking ciprofloxin and doxycycline from her primary DR started on 02/22/18. Progress of Wound: L foot ulcer healed - Physical Exam Vital Signs Temp Pulse Resp BP 97.5 F L 94 18 125/74 H 03/15/18 08:51 03/15/18 08:51 03/15/18 08:51 03/15/18 08:51 General: Oriented x3, Cooperative, Well developed HEENT: Atraumatic, PERRLA Oral: Moist Mucosa Neck: Supple, No JVD Lungs: Clear to auscultation, Normal air movement Cardiovascular: Regular rate, Regular Rhythm Abdomen: Bowel Sounds Present, Soft, Non Tender, No Hepato-splenomegaly Extremities: No clubbing, No edema, - - Left foot ulcer Wound Measurements and Assessment WC - Nurse 1 - General Ulcer Measurement Start: 02/22/18 10:00 Freq: Status: Active Protocol: Activity Type Activity Date Activity User E-Sign Co-Sign Detail Recorded Client Recorded Date Recorded By Document 03/15/18 08:51 JENNIE [id number] 03/15/18 08:56 JS 03/15/18 08:51 Wound Center Nurse 1 [Ulcer Assessment] #2- LT 1ST MET HEAD PLANTAR -Combined with other wound No -Current Size (cm) - Length 0.1 -Current Size (cm) - Width 0.1 -Current Size (cm) - Depth 0.1 -Total Square Cm 0.01 -Date of Last Picture (Recall this 02/22/18 field) -Photo Taken No -Epithelialization Large 67-100% -Tunneling No -Undermining/Tunneling No -Circular Undermining No -Exudate Amt None Present (0 %) -Wound Margin Flat & Intact -Granulation Amt None Present (0 %) -Granulation Quality N/A -Slough/Fibrin No -Necrosis Amt None Present (0 %) -Necrotic Tissue Type Eschar -Structure Exposed N/A -Texture (Rebeca-wound Skin Appearance) Callus -Moisture (Rebeca-wound Skin Appearance No Abnormality ) -Color (Rebeca-wound Skin Appearance) No Abnormality -Temperature (Rebeca-wound Skin No Abnormality Appearance) (Pt Warm) -Tenderness on Palpation (Rebeca-wound No Skin Appearance) -Ulcer Cleansing Rinsed/ Irrigated with Saline -Foul Odor after Cleansing No -Anesthetic Used 5% Lidocaine Gel [Edema Assessment] -Lower Limb Edema Present No WC - Nurse 2 - General Ulcer CM Notes Start: 02/22/18 10:00 Freq: Status: Active Protocol: Activity Type Activity Date Activity User E-Sign Co-Sign Detail Recorded Client Recorded Date Recorded By Document 03/15/18 09:20 DV [id number] 03/15/18 09:22 DV 03/15/18 09:20 Wound Center Nurse 2 [Procedure/Treatment] #2- LT 1ST MET HEAD PLANTAR -Time 09:21 -Correct Patient Yes -Procedure Performed No -Post Debridement Size (cm) - Length 0 -Post Debridement Size (cm) - Width 0 -Post Debridement Size (cm) - Depth 0 -Total Square Cm 0 -Wound/Ulcer Outcome Healed- Epithelialized [See Physician Procedure note for Specifics] Pain Scale: 0-10 Numeric [Pain] -Is Patient Pain Free? Yes Musculoskeletal: No Tenderness to Palpation of Joints or Extremities Lymphatic: No Cervical, Supraclavicular, or Inguinal Adenopathy Neurological: Cranial nerves II-XII grossly intact, Neuro grossly intact Psych/Mental Status: Normal Affect, Appropriate, Alert and oriented to time, place, person, mood and affect Debridement Note Post-Debridement Measurements/Treatment WC - Nurse 2 - General Ulcer CM Notes Start: 02/22/18 10:00 Freq: Status: Active Protocol: Activity Type Activity Date Activity User E-Sign Co-Sign Detail Recorded Client Recorded Date Recorded By Document 03/08/18 10:00 JS [id number] 03/08/18 10:06 JS Document 03/15/18 09:20 DV [id number] 03/15/18 09:22 DV 03/08/18 03/15/18 10:00 09:20 Wound Center Nurse 2 #2- LT 1ST MET HEAD PLANTAR -Time 10:01 09:21 -Correct Patient Yes Yes -Correct Side, Site, Position Yes -Correct Procedure Yes -Procedure Performed Yes No -Type of Procedure Debridement -Clinical Debridement Subcutaneous -Post Debridement Size (cm) - Length 0.1 0 -Post Debridement Size (cm) - Width 3.0 0 -Post Debridement Size (cm) - Depth 0 0 -Total Square Cm 0.30 0 -Wound/Ulcer Outcome Not Healed Healed- Epithelialized -Ulcer Cleansing Rinsed/ Irrigated with Saline -Foul Odor after Cleansing No -Bioengineered Tissue No -Bleeding Controlled with NA -Treatment Response Procedure Tolerated Well Pain Scale: 0-10 Numeric Is Patient Pain Free? Yes Yes No debridement was completed today Assessment/Plan Active Problems Peripheral artery disease (Chronic) Ulcer of left foot due to type 2 diabetes mellitus (Acute) Malnutrition (Chronic) Other specified peripheral vascular diseases (Chronic) Type 2 diabetes mellitus with diabetic polyneuropathy (Chronic) Assessment: Chronic ulcer L first meatarsal head resolved. Diabetes with suspected neuropathy. History of peripheral vascular disease. periphaeral arterial disease. Malnutrition Plan: Charge from the wound center follow-up as needed
--- NOTE | 2018-03-15 09:42 | PN.PCM_ITS ---
(1) Peripheral artery disease Status: Chronic Current Visit: Yes Code(s): I73.9 - Peripheral vascular disease, unspecified (2) Malnutrition Status: Chronic Current Visit: Yes Qualifiers: Malnutrition type: protein-calorie malnutrition Code(s): E46 - Unspecified protein-calorie malnutrition (3) Other specified peripheral vascular diseases Status: Chronic Current Visit: Yes Code(s): I73.89 - Other specified peripheral vascular diseases (4) Type 2 diabetes mellitus with diabetic polyneuropathy Status: Chronic Current Visit: Yes Code(s): E11.42 - Type 2 diabetes mellitus with diabetic polyneuropathy (5) Ulcer of left foot due to type 2 diabetes mellitus Status: Acute Current Visit: Yes Code(s): E11.621 - Type 2 diabetes mellitus with foot ulcer; L97.529 - Non-pressure chronic ulcer of other part of left foot with unspecified severity Type of Wound Date of Service: 03/15/18 Chief Complaint: L first metatarsal head ulcer History of Wound: This 67-year-old female with multiple comorbidities was seen today in the wound healing center for left metatarsal head ulcer starting as a blister on . She denies pain, fever, chill, nausea, vomiting. She denies pain becasueof her polyneuropathy . Currently taking ciprofloxin and doxycycline from her primary DR started on 02/22/18. Progress of Wound: L foot ulcer healed - Physical Exam Vital Signs Temp Pulse Resp BP 97.5 F L 94 18 125/74 H 03/15/18 08:51 03/15/18 08:51 03/15/18 08:51 03/15/18 08:51 General: Oriented x3, Cooperative, Well developed HEENT: Atraumatic, PERRLA Oral: Moist Mucosa Neck: Supple, No JVD Lungs: Clear to auscultation, Normal air movement Cardiovascular: Regular rate, Regular Rhythm Abdomen: Bowel Sounds Present, Soft, Non Tender, No Hepato-splenomegaly Extremities: No clubbing, No edema, - - Left foot ulcer Wound Measurements and Assessment WC - Nurse 1 - General Ulcer Measurement Start: 02/22/18 10:00 Freq: Status: Active Protocol: Activity Type Activity Date Activity User E-Sign Co-Sign Detail Recorded Client Recorded Date Recorded By Document 03/15/18 08:51 JENNIE [id number] 03/15/18 08:56 JS 03/15/18 08:51 Wound Center Nurse 1 [Ulcer Assessment] #2- LT 1ST MET HEAD PLANTAR -Combined with other wound No -Current Size (cm) - Length 0.1 -Current Size (cm) - Width 0.1 -Current Size (cm) - Depth 0.1 -Total Square Cm 0.01 -Date of Last Picture (Recall this 02/22/18 field) -Photo Taken No -Epithelialization Large 67-100% -Tunneling No -Undermining/Tunneling No -Circular Undermining No -Exudate Amt None Present (0 %) -Wound Margin Flat & Intact -Granulation Amt None Present (0 %) -Granulation Quality N/A -Slough/Fibrin No -Necrosis Amt None Present (0 %) -Necrotic Tissue Type Eschar -Structure Exposed N/A -Texture (Rebeca-wound Skin Appearance) Callus -Moisture (Rebeca-wound Skin Appearance No Abnormality ) -Color (Rebeca-wound Skin Appearance) No Abnormality -Temperature (Rebeca-wound Skin No Abnormality Appearance) (Pt Warm) -Tenderness on Palpation (Rebeca-wound No Skin Appearance) -Ulcer Cleansing Rinsed/ Irrigated with Saline -Foul Odor after Cleansing No -Anesthetic Used 5% Lidocaine Gel [Edema Assessment] -Lower Limb Edema Present No WC - Nurse 2 - General Ulcer CM Notes Start: 02/22/18 10:00 Freq: Status: Active Protocol: Activity Type Activity Date Activity User E-Sign Co-Sign Detail Recorded Client Recorded Date Recorded By Document 03/15/18 09:20 DV [id number] 03/15/18 09:22 DV 03/15/18 09:20 Wound Center Nurse 2 [Procedure/Treatment] #2- LT 1ST MET HEAD PLANTAR -Time 09:21 -Correct Patient Yes -Procedure Performed No -Post Debridement Size (cm) - Length 0 -Post Debridement Size (cm) - Width 0 -Post Debridement Size (cm) - Depth 0 -Total Square Cm 0 -Wound/Ulcer Outcome Healed- Epithelialized [See Physician Procedure note for Specifics] Pain Scale: 0-10 Numeric [Pain] -Is Patient Pain Free? Yes Musculoskeletal: No Tenderness to Palpation of Joints or Extremities Lymphatic: No Cervical, Supraclavicular, or Inguinal Adenopathy Neurological: Cranial nerves II-XII grossly intact, Neuro grossly intact Psych/Mental Status: Normal Affect, Appropriate, Alert and oriented to time, place, person, mood and affect Debridement Note Post-Debridement Measurements/Treatment WC - Nurse 2 - General Ulcer CM Notes Start: 02/22/18 10:00 Freq: Status: Active Protocol: Activity Type Activity Date Activity User E-Sign Co-Sign Detail Recorded Client Recorded Date Recorded By Document 03/08/18 10:00 JS [id number] 03/08/18 10:06 JS Document 03/15/18 09:20 DV [id number] 03/15/18 09:22 DV 03/08/18 03/15/18 10:00 09:20 Wound Center Nurse 2 #2- LT 1ST MET HEAD PLANTAR -Time 10:01 09:21 -Correct Patient Yes Yes -Correct Side, Site, Position Yes -Correct Procedure Yes -Procedure Performed Yes No -Type of Procedure Debridement -Clinical Debridement Subcutaneous -Post Debridement Size (cm) - Length 0.1 0 -Post Debridement Size (cm) - Width 3.0 0 -Post Debridement Size (cm) - Depth 0 0 -Total Square Cm 0.30 0 -Wound/Ulcer Outcome Not Healed Healed- Epithelialized -Ulcer Cleansing Rinsed/ Irrigated with Saline -Foul Odor after Cleansing No -Bioengineered Tissue No -Bleeding Controlled with NA -Treatment Response Procedure Tolerated Well Pain Scale: 0-10 Numeric Is Patient Pain Free? Yes Yes No debridement was completed today Assessment/Plan Active Problems Peripheral artery disease (Chronic) Ulcer of left foot due to type 2 diabetes mellitus (Acute) Malnutrition (Chronic) Other specified peripheral vascular diseases (Chronic) Type 2 diabetes mellitus with diabetic polyneuropathy (Chronic) Assessment: Chronic ulcer L first meatarsal head resolved. Diabetes with suspected neuropathy. History of peripheral vascular disease. periphaeral arterial disease. Malnutrition Plan: Charge from the wound center follow-up as needed
== END 2018-03-21 23:59 ==
LOC: WC 09:00
PROVIDERS: PCP Family Medicine; Visit Provider Nurse Practitioner
DX: E11.621 Type 2 diabetes mellitus with foot ulcer (principal); L97.521 Non-pressure chronic ulcer of other part of left foot limited to breakdown of skin; E46 Unspecified protein-calorie malnutrition; I73.9 Peripheral vascular disease, unspecified; E11.42 Type 2 diabetes mellitus with diabetic polyneuropathy; Z79.82 Long term (current) use of aspirin
CPT/HCPCS: 11042; 11045; 99212; 99213; G0463